=== PATIENT | female | born 1965 | race Caucasian/White ===

== ENCOUNTER → 2016-08-16 | Outpatient (CLI) | payer BC ==
[~2016-08-16] MED LIST: ALBU1AER9 INH; B-COTAB18 PO; BROM0.07 OPR; CALC-214 PO; CHOL100010 PO; GLUCTAB7 PO; METO25TA56 PO; OFLO0.3S4 OPL; PRED1SUS3 OPR
--- NOTE | 2016-08-19 14:31 | MAMMOGRAPHY REPORT ---
BILATERAL DIGITAL SCREENING MAMMOGRAM TOMOSYNTHESIS WITH CAD: 08/16/2016 CLINICAL HISTORY: Routine screening. Patient has no complaints. TECHNIQUE: Breast tomosynthesis in addition to standard 2D mammography was performed. Current study was also evaluated with a Computer Aided Detection (CAD) system. COMPARISON: Comparison is made to exams dated: 08/16/2015 mammogram, 08/12/2014 mammogram, 10/16/2012 mamm ogram - [facility], 09/22/2008, and 04/17/2007. BREAST COMPOSITION: There are scattered areas of fibroglandular density in both breasts. FINDINGS: There are newly visualized 2 adjacent circumscribed 8 and 6 mm masses seen within the righ t superior posterior breast overlying the pectoralis muscle, not evident on the cc view but is though t to project laterally based on the tomosynthesis localizer bar. These likely represent normal lymph nodes although were not seen on the prior exams. Recommend ultrasound and possible additional spot compression views for further evaluation. The remainder of both breasts are stable compared to prior exams, without suspicious masses, calcific ations, or areas of architectural distortion noted. IMPRESSION: ACR BI-RADS CATEGORY 0: INCOMPLETE EVALUATION: NEED ADDITIONAL IMAGING EVALUATION Two right breast masses, for which additional imaging evaluation is recommended. The patient will be called to schedule an appointment. Approximately 10% of breast cancers are not detected with mammography. A negative mammographic report should not delay biopsy if a clinically suggestive mass is present. Niurka Juan M.D. ah/:08/17/2016 11:29:08 Auto Phone Installer: Jazmyn GONZALES(Dorene)(Nba), [facility] letter sent: Addl Imaging 0 BI-RADS Code: ACR BI-RADS Category 0: Incomplete Evaluation: Need Additional Imaging Evaluation
== END | disposition home or self-care (01) ==
LOC: C.MAMM 11:38
PROVIDERS: ATTEND Family Medicine
DX: Z12.31 Encounter for screening mammogram for malignant neoplasm of breast (principal); N63 Unspecified lump in breast

== ENCOUNTER → 2016-08-29 | Outpatient (CLI) | payer BC ==
--- NOTE | 2016-08-30 09:02 | MAMMOGRAPHY REPORT ---
UNILATERAL RIGHT DIGITAL DIAGNOSTIC MAMMOGRAM TOMOSYNTHESIS AND TARGETED RIGHT ULTRASOUND: 08/29/2016 CLINICAL HISTORY: 51-year-old woman called back from screening mammography for 2 adjacent nodular asy mmetries in the superior posterior right breast, projecting over the pectoralis muscle on the MLO vie w. TECHNIQUE: Right exaggerated lateral CC and MLO 2-D and tomosynthesis images were obtained after plac ement of a skin BB marker overlying masses identified on ultrasound. COMPARISON: Comparison is made to exams dated: 08/29/2016 ultrasound, 08/16/2016 mammogram, 08/16/2015 ma mmogram, 08/12/2014 mammogram, 10/16/2012 mammogram - [facility], and 09/22/2008. BREAST COMPOSITION: There are scattered areas of fibroglandular density in the right breast. FINDINGS: First targeted ultrasound was performed in the upper outer quadrant of the right breast to evaluate for the 2 adjacent 5 x 6 mm partially circumscribed masses identified on recent screening m ammogram. 2 adjacent hypoechoic masses are identified in the 9:30 right breast, 10 cm from the nippl e. They have reniform shape and echogenic fatty bo. Blood flow is clearly documented to the sligh tly larger, lateral mass and these are compatible with benign lymph nodes. A skin BB was placed over lying these lymph nodes and repeat mammography was performed. On the right MLO view, the skin BB aligns with the mammographic nodular asymmetries in question. On this view, fatty bo are more evident. These masses are compatible with lymph nodes that appear mor phologically normal. However, given that they were not identified on any prior mammograms, a short i nterval follow-up diagnostic right mammogram MLO view, and repeat targeted ultrasound is read made to ensure stability in 6 months. IMPRESSION: ACR-BI-RADS CATEGORY 3: PROBABLY BENIGN, TARGETED ULTRASOUND ACR-BI-RADS CATEGORY 3: PRO BABLY BENIGN The 2 adjacent subcentimeter nodular asymmetries in the superior posterior right breast on the MLO vi ew most likely represent benign intramammary lymph nodes. However, given that they were not identifi ed on any available prior exams, a short interval follow-up diagnostic MLO view including tomosynthes is images and repeat targeted ultrasound is recommended in 6 months. Approximately 10% of breast cancers are not detected with mammography. A negative mammographic report should not delay biopsy if a clinically suggestive mass is present. Teri Mera M.D. ay/:08/29/2016 14:54:13 Licensed Psychiatric Technician: Marry Celestin, [facility] letter sent: Follow Up Recommended 3 BI-RADS Code: ACR-BI-RADS Category 3: Probably Benign Ultrasound BI-RADS: ACR-BI-RADS Category 3: Pr obably Benign
== END | disposition home or self-care (01) ==
LOC: C.MAMM 10:03
PROVIDERS: ATTEND Family Medicine
DX: N63 Unspecified lump in breast (principal); N64.89 Other specified disorders of breast

== ENCOUNTER → 2017-03-03 | Outpatient (CLI) | payer BC ==
--- NOTE | 2017-03-03 14:42 | MAMMOGRAPHY REPORT ---
UNILATERAL RIGHT DIGITAL DIAGNOSTIC MAMMOGRAM TOMOSYNTHESIS WITH CAD: 03/03/2017 CLINICAL HISTORY: 51-year-old woman presents for follow-up in the right breast of probable intramamma ry lymph nodes projecting over the inferior pectoralis muscle on the MLO view on the which were not v isualized on prior mammograms. TECHNIQUE: Right breast tomosynthesis in addition to standard 2D mammography was performed. Current s tudy was also evaluated with a Computer Aided Detection (CAD) system. COMPARISON: Comparison is made to exams dated: 08/29/2016 mammogram, 08/29/2016 ultrasound, 08/16/2016 m ammogram, 08/16/2015 mammogram, 08/12/2014 mammogram, and 10/16/2012 mammogram - [facility]. BREAST COMPOSITION: There are scattered areas of fibroglandular density in the right breast. FINDINGS: There are 2 circumscribed masses projecting over the inferior right pectoralis muscle on t he MLO view, in the superior posterior aspect of the breast. The inferior mass has a reniform shape and central lucent notch, suggesting an intramammary lymph node. Both of these masses were previousl y documented to represent lymph nodes on prior ultrasound. When comparing to the mammograms obtained 08/16/2016, they are unchanged in size and appearance. Currently wall measuring in the same plane, the superior circumscribed mass measures 6.4 mm, previously 6.6, and the inferior mass measures 7.1 m m, previously 7.3. These are considered stable given slight differences in positioning and measuring technique. No new suspicious mass, architectural distortion or cluster of microcalcifications is se en within the right breast. These lymph nodes visualized on the MLO view most likely represent benign lymph nodes and are newly v isualized given inclusion of more lateral and posterior tissue on the mammogram than on prior mammogr ams. However, given that long-term stability is not demonstrated, another six-month follow-up right diagnostic tomosynthesis mammogram including lateral and superior tissue is recommended, for accurate measurement and comparison purposes. Annual left mammography will also be due at that time. IMPRESSION: ACR-BI-RADS CATEGORY 3: PROBABLY BENIGN The lymph nodes in the superior posterior right breast, projecting over the inferior pectoralis muscl e on the MLO view have not changed in size or visual appearance comparing to the 08/16/2016 mammogram s, but were not identified on prior mammograms to ensure long-term stability. Another six-month foll ow-up right diagnostic tomosynthesis mammogram and possible ultrasound is recommended in 6 months to ensure longer stability. Annual left mammography will also be due at that time. These results and recommendations were discussed with the patient at the time of the exam. Approximately 10% of breast cancers are not detected with mammography. A negative mammographic report should not delay biopsy if a clinically suggestive mass is present. Teri Mera M.D. ay/:03/03/2017 12:15:35 Office Services Specialist: Guerline GONZALES(Dorene)(M), [facility] letter sent: Follow Up Recommended 3 BI-RADS Code: ACR-BI-RADS Category 3: Probably Benign
== END | disposition home or self-care (01) ==
LOC: C.MAMM 08:47
PROVIDERS: ATTEND Family Medicine
DX: R92.8 Other abnormal and inconclusive findings on diagnostic imaging of breast (principal)

== ENCOUNTER → 2017-09-02 | Outpatient (CLI) | payer OTHER ==
--- NOTE | 2017-09-02 16:20 | MAMMOGRAPHY REPORT ---
BILATERAL DIGITAL DIAGNOSTIC MAMMOGRAM TOMOSYNTHESIS WITH CAD: 09/02/2017 CLINICAL HISTORY: Patient presents for close follow-up in the right breast for 2 lymph nodes in the s uperior, far posterior breast projecting over the pectoralis muscle on the MLO view. Also time of theo ual bilateral mammograms. TECHNIQUE: Bilateral CC and MLO 2D and tomosynthesis images were obtained. Current study was also ev aluated with a Computer Aided Detection (CAD) system. COMPARISON: Comparison is made to exams dated: 03/03/2017 mammogram, 08/29/2016 mammogram, 08/16/2016 ma mmogram, 08/16/2015 mammogram, 08/12/2014 mammogram, and 10/16/2012 mammogram - [facility] BREAST COMPOSITION: There are scattered areas of fibroglandular density in both breasts. FINDINGS: The breast parenchymal pattern is similar to prior mammograms. 2 morphologically normal ly mph nodes project over the superior, posterior right breast and pectoralis muscle on the MLO view. T hese lymph nodes were previously documented to have normal morphology on ultrasound. They are stable in size and visual appearance mammographically dating back to at least 08/16/2016 and with one year of stability are considered benign. There are likely newly visualized given inclusion of more posterio r tissue on the mammogram images. Overall, there is no mammographic evidence of malignancy in the br easts. Recommend routine screening mammography in 1 year. IMPRESSION: ACR BI-RADS CATEGORY 2: BENIGN 1. The 2 morphologically normal lymph nodes projecting over the right pectoralis muscle on the MLO v iew are stable in size and visual appearance dating back to 08/16/2016 and more likely newly visualized given inclusion of more posterior tissue on the mammogram images. There is no mammographic evidence of malignancy in the breasts. Recommend routine screening mammography in 1 year. These results and recommendations were discussed with the patient at the time of the exam. Some breast cancers are not detected with mammography. A negative mammographic report should not jarod y biopsy if a clinically suggestive mass is present. Teri Mera M.D. ay/:09/02/2017 09:40:11 Interdisciplinary Professor: Marry Celestin, [facility] letter sent: Normal 1/2 BI-RADS Code: ACR BI-RADS Category 2: Benign
== END | disposition home or self-care (01) ==
LOC: C.MAMM 08:39
PROVIDERS: ATTEND Family Medicine
DX: R92.8 Other abnormal and inconclusive findings on diagnostic imaging of breast (principal)

== ENCOUNTER 2019-09-19 19:11 | Observation (INO) ==
[2019-09-19] MEDS ORDERED: SODIUM CHLORIDE 0.9% 1000ML 1,000 ML IV STA (19:47)
[2019-09-19] MEDS ORDERED: AMPICILLIN/SULBACTAM SOD 3,000 MG in 0.9 % SODIUM CHLORIDE 100 ML IV STA (19:47)
[2019-09-19] MEDS ORDERED: SODIUM CHLORIDE 0.9% 1000ML 1,000 ML IV ONE (19:49)
[2019-09-19 20:31] LABS: Partial Thromboplastin Ratio 0.9; Partial Thromboplastin Time 25.9 Seconds (21.0-31.0); Prothrombin Time 10.4 Seconds (9.0-12.0)
[2019-09-19 20:47] LABS: Basophils # (auto) 0.03 K/uL (0-0.2); Basophils % (auto) 0.5 %; Hematocrit (blood only) 40.2 % (37-47); Hemoglobin 13.2 g/dL (12.0-16.0); Immature Granulocytes # (auto) 0.01 K/uL (0.00-0.02); Immature Granulocytes % (auto) 0.2 %; Lymphocytes # (auto) 0.65 K/uL (1.2-3.4); Lymphocytes % (auto) 11.2 %; Mean Corpuscular Hemoglobin 30.8 pg (25-34); Mean Corpuscular Hgb Conc 32.8 g/dL (32-36); Mean Corpuscular Volume 93.7 fL (80-100); Mean Platelet Volume 9.5 fL (7.4-10.4); Monocytes # (auto) 0.44 K/uL (0.11-0.59); Monocytes % (auto) 7.6 %; Neutrophils # (auto) 4.65 K/uL (1.4-6.5); Neutrophils % (auto) 80.5 %; Platelet Count 258 K/uL (130-400); Platelet Estimate Normal (Normal); RDW Coefficient of Variation 13.4 % (11.5-14.5); RDW Standard Deviation 46.1 fL (36.4-46.3); Red Blood Count 4.29 M/uL (4.2-5.4); White Blood Count 5.78 K/uL (4.8-10.8)
[2019-09-19 21:07] LABS: Albumin Globulin Ratio 0.9 (0.9-2); Albumin Level 3.6 gm/dl (3.4-5.0); BUN Creatinine Ratio 9.2 (10-20); Calcium 9.2 mg/dl (8.5-10.1); Creatinine Clr Calc Pharmacy 76.3 ml/min; Est GFR (African American) 72.6; Est GFR (Non-African American) 62.6; Globulin 3.9 gm/dl (2.5-4.0); Potassium 3.4 mmol/L (3.5-5.1); Total Protein 7.5 gm/dl (6.4-8.2)
[2019-09-19] MEDS ORDERED: BACLOFEN 10 MG TAB PO PRN (22:55)
[2019-09-19] MEDS ORDERED: POLYETHYLENE (MIRALAX) 17 GM PACK PO PRN (22:55)
[2019-09-19] MEDS: SODIUM CHLORIDE 0.9% 1000ML 1,000 ML IV SCH (22:55)
[2019-09-19] MEDS ORDERED: ALPRAZolam 0.25 MG TABLET PO PRN (22:55)
[2019-09-19] MEDS ORDERED: OXYCODONE HCL IR 5 MG TAB (IMMEDIATE RELEASE) PO PRN (22:55)
--- NOTE | 2019-09-19 23:11 | History and Physical Report ---
DATE OF ADMISSION: 09/19/2019 CHIEF COMPLAINT: Cat bite. HISTORY OF PRESENT ILLNESS: This is a 54-year-old female with past medical history significant for history of pneumonia, history of influenza, pharyngitis, chronic sinusitis, history of PVCs, history of mitral valve disorder, hypertension, rosacea, cervicalgia, anxiety, depression, postnasal drip, posttraumatic stress disorder, who lives with her , comes with a cat bite. The patient says she has a pet cat which is there for many years and that she had a new stray cat living with them recently. Both the cats are good, but they do not like each other. She was petting her stray cat and when the stray cat went away her own cat was sitting beside her. When she tried to pet her, she got mad and she bit her on the left forearm. She came to the ER yesterday and she was given tetanus shot and Unasyn and discharged on Augmentin. She says her cat's rabies vaccine about 7 weeks ago, so as per the recommendations her cat is under quarantine now.But today evening the erythema was spreading and also she spiked a temperature and she came to the ER. In the ER, T-max was 37.8. No leukocytosis. Rest of the labs were unremarkable. She complains she has mild headache and she also has some mild right earache. She has allergies and has some runny nose, but denies any sore throat. Has cough from her allergies. Appetite is okay. No chest pain, no shortness of breath. Was nauseous earlier with antibiotics. No abdominal pain. No blood in the stools. Normal bowel and bladder movements. No rash anywhere else. Resting comfortably currently. ALLERGIES: KACEY INHIBITORS, CEPHALOSPORINS, HYDROCHLOROTHIAZIDE, EPINEPHRINE, ADHESIVES. PAST MEDICAL HISTORY: As mentioned above. PAST SURGICAL HISTORY: Colonoscopy, dilatation and curettage, ligation of oviducts, mole removed from the back, bilateral cataract surgery, repair of the nasal septum, shoulder arthroscopy. MEDICATIONS: The patient is on alprazolam 0.5 mg p.o. daily p.r.n., Augmentin 1 tablet p.o. b.i.d., baclofen 10 mg p.o. daily p.r.n., metoprolol 25 mg p.o. b.i.d. FAMILY HISTORY: Significant for father had prostate cancer, [place], hypertension; mother had skin cancer; sister has probable meningioma; another sister of PE. SOCIAL HISTORY: , lives with her . No smoking. Drinks 1 drink daily on average. No drug use. REVIEW OF SYSTEMS: As per HPI. Rest of the review of systems negative. PHYSICAL EXAMINATION: GENERAL: The patient is of moderate build, not in acute distress. VITAL SIGNS: Temperature 37.8, pulse 110, respiratory rate 18, blood pressure 136/107, oxygen 96% on room air. HEENT: No pallor. Pupils equal, round, reactive to light. Oral mucosa moist. NECK: No JVD, no neck masses. CARDIOVASCULAR: S1, S2 heard, regular rate and rhythm, no murmur, no gallop. RESPIRATORY SYSTEM: Normal AP diameter. No accessory muscle use. No wheezing, no crackles. ABDOMEN: Soft, bowel sounds present, nontender. No distention. CENTRAL NERVOUS SYSTEM: Cranial nerves II-XII grossly intact. Nonfocal. EXTREMITIES: Left upper extremity erythema and slight swelling seen in the forearm about the wrist region spreading posteriorly. LABORATORY DATA: WBC 5.7, hemoglobin 13.2, hematocrit 40.2, platelets 258. PT 10.4, INR 1, APTT 25.9. Sodium 139, potassium 3.4, chloride 106, bicarbonate 27, BUN 9, creatinine 1.01. Serum glucose 100, lactate 1.4, calcium 9.2, total bilirubin 1, AST 29, ALT 32, alkaline phosphatase is 101. ASSESSMENT AND PLAN: This is a 54-year-old female who presents with a biting from a cat, not responding to oral antibiotics. 1. Cat bite wound, spreading cellulitis. Received Unasyn yesterday and discharged on Augmentin, but again has temperature spike and erythema seemed to be spreading, so she came back. Will continue with IV Unasyn, IV fluids, follow the cultures and if not responding, may change the antibiotics to clindamycin and doxycycline. Monitor in the medical floor. 2. History of hypertension, PVCs. Continue her home metoprolol. 3. History of anxiety. Continue her Ativan p.r.n. 4. Deep venous thrombosis prophylaxis, sequential compression devices. DISPOSITION: Admit to medical floor. Expect to discharge home and follow with the family doctor. [facility]
[2019-09-19] MEDS ORDERED: AMPICILLIN/SULBACTAM CONSULT ACTIVE PRN (23:13)
--- NOTE | 2019-09-19 23:35 | Emergency Department Note ---
History of Present Illness General Chief complaint: Animal Bite Stated complaint: CAT BITE, FEVER Time Seen by Provider: 09/19/19 19:14 History of Present Illness Maximum Pain Intensity: 5 54-year-old female who presents to the emergency department for evaluation of a worsening cat bite infection to the left forearm. The patient reports that she was bitten Friday evening. She was seen here yesterday and administered IV Unasyn with a prescription for Augmentin antibiotics. The patient reports that she has had worsening swelling of the forearm, and mildly worsening pain and redness over the ulnar aspect of the forearm. She denies any significant pain with movement of the elbow or wrist. The patient has had a fever of 101.8 F at home. She is also felt chilled and rundown. The patient rates her discomfort a 5 out of 10. Home Medications Home Medications Medication Instructions Recorded Confirmed Type alprazolam 0.25 mg PO DAILY PRN 09/18/19 09/19/19 History amoxicillin-pot clavulanate 1 tab PO BID 10 Days #20 tab 09/18/19 09/19/19 Rx [Augmentin] baclofen 10 mg PO DAILY PRN 09/18/19 09/19/19 History metoprolol tartrate 25 mg PO BID 09/18/19 09/19/19 History Allergies Allergy/AdvReac Type Severity Reaction Status Date / Time KACEY Inhibitors Allergy Severe "THROAT Verified 09/19/19 19:57 CLOSES" Cephalosporins Allergy Intermediate FACIAL/MOUTH Verified 09/19/19 19:57 EDEMA,FLUSHING hydrochlorothiazide Allergy Intermediate "MADE FACE Verified 09/19/19 19:57 GO NUMB" epinephrine AdvReac Intermediate LOW BP DID Verified 09/19/19 19:57 NOT RESPOND TO EPI adhesive AdvReac Mild UNKNOWN Verified 09/19/19 19:57 Past Med/Surg History Medical History [facility]'s disease (Chronic 10/06/12) H1N1 influenza developed ARDS and was placed in coma for 1 month Hypertensive urgency Surgical History No significant past surgical history Social History Smoking Status: Never smoker Do You Dip or Chew Tobacco: No; Hx Alcohol Use: No Hx Substance Use: No Preferred Language: Lithuanian Communication Ability: Effective Hide Inspector Required: No Beliefs That Will Affect Care: None marital status: Current Living Situation: Family current occupational status: employed Other Information That Helps Us Care for You: No Feels Safe at Home: Yes Safety Concerns: Feels Safe At This Time Review of Systems 10 system review was performed and was negative except for pertinent positives and negatives as indicated in history of present illness Physical Exam Vital Signs Vital Signs - 24 hr 09/19/19 19:13 Temperature 37.8 C H Temperature Source Oral Pulse Rate 110 H Respiratory Rate 18 Respiratory Effort / Characteristics Non-Labored Spontaneous Respiratory Depth Normal Blood Pressure 186/107 H Blood Pressure Mean 133 Pulse Oximetry 96 Oxygen Delivery Method Room Air Sepsis Recent Fever Within 48 Hours Yes Sepsis New/Unexplained Change in Mental Status No Sepsis Action Taken by Nursing No Action Required CONSTITUTIONAL: Healthy and well nourished. Patient does not appear in any acute distress. HEENT: Normocephalic, atraumatic. No scleral icterus or conjunctival injection. RESPIRATORY: Clear to auscultation bilaterally with no wheezing, crackles, rhonchi or stridor. CARDIOVASCULAR: Regular rate and rhythm with no murmurs, rubs or gallops. GASTROINTESTINAL: Bowel sounds present in all quadrants. Soft and nontender to palpation. MUSCULOSKELETAL: Examination of left upper extremity shows multiple bites and scratches on the left hand and forearm. She does have notable erythema along the entire dorsal forearm region that is tender to palpation and mildly indurated. No fluctuance or drainage appreciated. Patient has mild but no significant discomfort with passive flexion and extension of the fingers and wrist. Capillary refill of the fingers is less than 2 seconds. INTEGUMENTARY: No rash or other significant dermatologic conditions noted. HEMATOLOGIC: No ecchymosis or petechiae. PSYCHIATRIC: Positive affect. NEUROLOGIC: Left hand and fingers are sensory intact. Course Course Patient history and physical exam were performed. Nurse's notes were reviewed. Vital signs were reviewed, showing an oral temperature of 37.8 C. She is also mildly tachycardic at 110 bpm. She is also hypertensive at 186/107. The patient reports that she did not feel well enough to take her blood pressure medicine this morning, and actually took the medicine just prior to my examination. Because of worsening infection and fever, I recommended hospitalist evaluation for IV antibiotics. The patient was in agreement. IV access was established, and labs were drawn, including blood cultures x2. The patient was hydrated with 2 L of normal saline. Review of labs shows no leukocytosis. Potassium is 3.4. Renal function is normal. Lactate is also normal. The patient was administered Unasyn 3 g IV infusion. The case was further discussed with Dr. Crawford, ED attending physician, who agrees with hospitalist evaluation. The case was then discussed with the [facility] hospitalist group. Please see their dictation for further treatment and final disposition. Administered Medications Acetaminophen (Tylenol) 650 mg PO Q4H PRN PRN Reason: pain/fever Stop: 10/19/19 22:54 Last Admin: 09/20/19 00:08 Dose: 650 mg Documented by: [id number] Sodium Chloride (Nss 1000ml) 1,000 mls @ 100 mls/hr IV .Q10H KIM Stop: 10/19/19 22:54 Last Admin: 09/19/19 22:55 Dose: 100 mls/hr Documented by: [id number] Discontinued Medications Sodium Chloride (Nss 1000ml) 1,000 mls @ 999 mls/hr IV .Q1H1M ONE Stop: 09/19/19 20:49 Last Infusion: 09/19/19 21:57 Dose: 0 mls/hr Documented by: [id number] Admin: 09/19/19 20:42 Dose: 999 mls/hr Documented by: [id number] Sodium Chloride (Nss 1000ml) 1,000 mls @ 999 mls/hr IV .Q1H1M STA Stop: 09/19/19 20:47 Last Infusion: 09/20/19 00:01 Dose: 0 mls/hr Documented by: [id number] Admin: 09/19/19 22:13 Dose: 999 mls/hr Documented by: [id number] Ampicillin Sodium/Sulbactam Sodium 3,000 mg/ Sodium Chloride 108 mls @ 200 mls/hr IV NOW STA; Protocol Stop: 09/19/19 20:19 Last Infusion: 09/19/19 21:15 Dose: 0 mls/hr Documented by: [id number] Admin: 09/19/19 20:42 Dose: 200 mls/hr Documented by: [id number] Medical Decision Making Medical Records Attestation: I reviewed the patient's medical records. Home Medications Current Medication List: was personally reviewed by me Laboratory Data Attestation: I reviewed the patient's lab results. Result diagrams: 09/19/19 20:05 09/19/19 20:05 Lab Results 09/19/19 09/19/19 09/19/19 Range/Units 20:05 20:05 20:05 WBC 5.78 (4.8-10.8) K/uL RBC 4.29 (4.2-5.4) M/uL Hgb 13.2 (12.0-16.0) g/dL Hct 40.2 (37-47) % MCV 93.7 (80-100) fL MCH 30.8 (25-34) pg MCHC 32.8 (32-36) g/dL RDW Std Deviation 46.1 (36.4-46.3) fL RDW Coeff of Jose 13.4 (11.5-14.5) % Plt Count 258 (130-400) K/uL MPV 9.5 (7.4-10.4) fL Immature Gran % (Auto) 0.2 % Neut % (Auto) 80.5 % Lymph % (Auto) 11.2 % [place] % (Auto) 7.6 % Eos % (Auto) 0.0 % Baso % (Auto) 0.5 % Neut # (Auto) 4.65 (1.4-6.5) K/uL Lymph # (Auto) 0.65 L (1.2-3.4) K/uL [place] # (Auto) 0.44 (0.11-0.59) K/uL Eos # (Auto) 0.00 (0-0.5) K/uL Baso # (Auto) 0.03 (0-0.2) K/uL Immature Gran # (Auto) 0.01 (0.00-0.02) K/uL Platelet Estimate Normal (Normal) PT 10.4 (9.0-12.0) Seconds INR 1.0 (0.9-1.1) APTT 25.9 (21.0-31.0) Seconds PTT Ratio 0.9 Sodium 139 (136-145) mmol/L Potassium 3.4 L D (3.5-5.1) mmol/L Chloride 106 (98-107) mmol/L Carbon Dioxide 27 (21-32) mmol/L Anion Gap 6.0 (3-11) BUN 9 (7-18) mg/dl Creatinine 1.01 (0.6-1.2) mg/dl Est Cr Clr Drug Dosing 76.3 ml/min Est GFR ( Amer) 72.6 Est GFR (Non-Af Amer) 62.6 BUN/Creatinine Ratio 9.2 L (10-20) Glucose 100 H (70-99) mg/dl Lactate (0.4-2.0) mmol/L Calcium 9.2 (8.5-10.1) mg/dl Total Bilirubin 1.0 (0.2-1) mg/dl AST 29 (15-37) U/L ALT 32 (12-78) U/L Alkaline Phosphatase 101 (45-117) U/L Total Protein 7.5 (6.4-8.2) gm/dl Albumin 3.6 (3.4-5.0) gm/dl Globulin 3.9 (2.5-4.0) gm/dl Albumin/Globulin Ratio 0.9 (0.9-2) 09/19/19 Range/Units 20:25 WBC (4.8-10.8) K/uL RBC (4.2-5.4) M/uL Hgb (12.0-16.0) g/dL Hct (37-47) % MCV (80-100) fL MCH (25-34) pg MCHC (32-36) g/dL RDW Std Deviation (36.4-46.3) fL RDW Coeff of Jose (11.5-14.5) % Plt Count (130-400) K/uL MPV (7.4-10.4) fL Immature Gran % (Auto) % Neut % (Auto) % Lymph % (Auto) % [place] % (Auto) % Eos % (Auto) % Baso % (Auto) % Neut # (Auto) (1.4-6.5) K/uL Lymph # (Auto) (1.2-3.4) K/uL [place] # (Auto) (0.11-0.59) K/uL Eos # (Auto) (0-0.5) K/uL Baso # (Auto) (0-0.2) K/uL Immature Gran # (Auto) (0.00-0.02) K/uL Platelet Estimate (Normal) PT (9.0-12.0) Seconds INR (0.9-1.1) APTT (21.0-31.0) Seconds PTT Ratio Sodium (136-145) mmol/L Potassium (3.5-5.1) mmol/L Chloride (98-107) mmol/L Carbon Dioxide (21-32) mmol/L Anion Gap (3-11) BUN (7-18) mg/dl Creatinine (0.6-1.2) mg/dl Est Cr Clr Drug Dosing ml/min Est GFR ( Amer) Est GFR (Non-Af Amer) BUN/Creatinine Ratio (10-20) Glucose (70-99) mg/dl Lactate 1.4 (0.4-2.0) mmol/L Calcium (8.5-10.1) mg/dl Total Bilirubin (0.2-1) mg/dl AST (15-37) U/L ALT (12-78) U/L Alkaline Phosphatase (45-117) U/L Total Protein (6.4-8.2) gm/dl Albumin (3.4-5.0) gm/dl Globulin (2.5-4.0) gm/dl Albumin/Globulin Ratio (0.9-2) Blood Pressure Blood Pressure Findings: Elevated blood pressure Blood Pressure Disposition: further management by hospitalist MDM Narrative Patient presents to the emergency department after failing outpatient management of a left forearm cellulitis incurred by a cat bite. I do not feel that the patient is septic after review of labs, as she has no leukocytosis or elevated lactate level. Blood cultures were nonetheless ordered given her fever. At this point, I do not suspect that the patient has an infected tenosynovitis, therefore emergent orthopedic surgical consult was not felt to be warranted. T he case was further discussed with the hospitalist who agrees with an observation status with IV antibiotics. Impression & Plan Infected cat bite of forearm Discharge Plan Visit Data *Final* Discharge Date/Time: 09/19/19 22:27 Chief Complaint: Animal Bite Stated Complaint: CAT BITE, FEVER ED Provider: Suhail Crawford ED Midlevel Provider: Devonte Ching Discharge Problem: Infected cat bite of forearm Patient Disposition: Admitted As Inpatient Discharge Instructions Interventions: ED Discharge Assessment Last Done: 09/19/19 22:27 Discharge Problem: Infected cat bite of forearm Qualifiers: Encounter type: initial encounter Laterality: left Qualified Code(s): S51.852A - Open bite of left forearm, initial encounter
[2019-09-20] MEDS: ACETAMINOPHEN 325 MG TAB PO PRN ×2 (00:08→20:18)
[2019-09-20] MEDS: AMPICILLIN/SULBACTAM SOD 3,000 MG in 0.9 % SODIUM CHLORIDE 100 ML IV SCH ×4 (01:47→20:18)
[2019-09-20 05:30] LABS: Basophils # (auto) 0.03 K/uL (0-0.2); Basophils % (auto) 0.7 %; Eosinophils # (auto) 0.01 K/uL (0-0.5); Eosinophils % (auto) 0.2 %; Hematocrit (blood only) 38.8 % (37-47); Hemoglobin 12.5 g/dL (12.0-16.0); Immature Granulocytes # (auto) 0.01 K/uL (0.00-0.02); Immature Granulocytes % (auto) 0.2 %; Lymphocytes # (auto) 1.21 K/uL (1.2-3.4); Lymphocytes % (auto) 27.1 %; Mean Corpuscular Hemoglobin 30.5 pg (25-34); Mean Corpuscular Hgb Conc 32.2 g/dL (32-36); Mean Corpuscular Volume 94.6 fL (80-100); Mean Platelet Volume 8.6 fL (7.4-10.4); Monocytes # (auto) 0.37 K/uL (0.11-0.59); Monocytes % (auto) 8.3 %; Neutrophils # (auto) 2.83 K/uL (1.4-6.5); Neutrophils % (auto) 63.5 %; Platelet Count 203 K/uL (130-400); RDW Coefficient of Variation 13.5 % (11.5-14.5); RDW Standard Deviation 46.7 fL (36.4-46.3); White Blood Count 4.46 K/uL (4.8-10.8)
[2019-09-20] MEDS ORDERED: HydrALAZINE HCL 20 MG/ML VIAL IV PRN (05:38)
[2019-09-20 05:53] LABS: BUN Creatinine Ratio 8.7 (10-20); Calcium 8.5 mg/dl (8.5-10.1); Creatinine Clr Calc Pharmacy 96.8 ml/min; Est GFR (African American) 97.7; Est GFR (Non-African American) 84.3; Magnesium 2.2 mg/dl (1.8-2.4); Potassium 3.2 mmol/L (3.5-5.1)
[2019-09-20] MEDS ORDERED: POTASSIUM CHLORIDE 20 MEQ/15 ML UDC PO STA (06:57)
[2019-09-20] MEDS: METOPROLOL TARTRATE 25 MG TAB PO SCH ×2 (08:21→21:58)
[2019-09-20] MEDS: SODIUM CHLORIDE 0.9% 1000ML 1,000 ML IV SCH ×2 (11:07→20:19)
--- NOTE | 2019-09-20 11:17 | Hospitalist Progress Note ---
Date of Service September 20, 2019 Assessment & Plan (1) Infected cat bite of forearm: (2) Cellulitis of forearm, left: Patient reports improvement No leukocytosis Will continue iv zosyn for now and monitor Doxycycline added Continue to monitor If worsens, will change to clinda + doxy and consult surgery (3) Hypertension: BP is 150/64 this AM Continue home metoprolol If poorly controlled, will add CCB DVT prophylaxis - SCD Admission and Anticipated Discharge Date Admission Date: September 19, 2019 Subjective Patient seen and examined Reports generalized body aches Reports pain and swelling at bite site is improved Tmax since admission is 37.8 Reported earlier headache is resolved. No chills, nausea, vomiting No paresthesiae in left hand Physical Exam Constitutional: + well hydrated; no acute distress Eyes: PERRL, conjunctivae normal, anicteric sclerae ENMT: external ear and nose normal, oropharynx normal No tragal tenerness Respiratory: normal respiratory effort, lungs clear to auscultation Cardiovascular: RRR, no murmur, no edema Gastrointestinal (Abdomen): normal bowel sounds, soft, nontender, no hepatosplenomegaly Musculoskeletal: Swelling, erythema and tenderness around cat bite pola on dorsum of left forearm No discharge. Radial pulse is normal, no sensory deficits Neurologic: PERRL, EOMI, accommodation nl, no face palsy, no dysarthria Psychiatric: A+Ox3, euthymic affect Results & Data Results & Data ([facility]) Vital Signs (Past 12 Hours) Vital Signs Temp Pulse Resp BP Pulse Ox 09/20/19 07:20 37.6 C H 86 18 150/64 H 95 09/20/19 04:43 37.2 C Laboratory Results Laboratory Results - last 24 hr 09/19/19 09/19/19 09/19/19 20:05 20:05 20:05 WBC 5.78 RBC 4.29 Hgb 13.2 Hct 40.2 MCV 93.7 MCH 30.8 MCHC 32.8 RDW Std Deviation 46.1 RDW Coeff of Jose 13.4 Plt Count 258 MPV 9.5 Immature Gran % (Auto) 0.2 Neut % (Auto) 80.5 Lymph % (Auto) 11.2 [place] % (Auto) 7.6 Eos % (Auto) 0.0 Baso % (Auto) 0.5 Neut # (Auto) 4.65 Lymph # (Auto) 0.65 L [place] # (Auto) 0.44 Eos # (Auto) 0.00 Baso # (Auto) 0.03 Immature Gran # (Auto) 0.01 Platelet Estimate Normal PT 10.4 INR 1.0 APTT 25.9 PTT Ratio 0.9 Sodium 139 Potassium 3.4 L D Chloride 106 Carbon Dioxide 27 Anion Gap 6.0 BUN 9 Creatinine 1.01 Est Cr Clr Drug Dosing 76.3 Est GFR ( Amer) 72.6 Est GFR (Non-Af Amer) 62.6 BUN/Creatinine Ratio 9.2 L Glucose 100 H Lactate Calcium 9.2 Magnesium Total Bilirubin 1.0 AST 29 ALT 32 Alkaline Phosphatase 101 Total Protein 7.5 Albumin 3.6 Globulin 3.9 Albumin/Globulin Ratio 0.9 09/19/19 09/20/19 09/20/19 20:25 05:08 05:08 WBC 4.46 L RBC 4.10 L Hgb 12.5 Hct 38.8 MCV 94.6 MCH 30.5 MCHC 32.2 RDW Std Deviation 46.7 H RDW Coeff of Jose 13.5 Plt Count 203 MPV 8.6 Immature Gran % (Auto) 0.2 Neut % (Auto) 63.5 Lymph % (Auto) 27.1 [place] % (Auto) 8.3 Eos % (Auto) 0.2 Baso % (Auto) 0.7 Neut # (Auto) 2.83 Lymph # (Auto) 1.21 [place] # (Auto) 0.37 Eos # (Auto) 0.01 Baso # (Auto) 0.03 Immature Gran # (Auto) 0.01 Platelet Estimate PT INR APTT PTT Ratio Sodium 142 Potassium 3.2 L Chloride 110 H Carbon Dioxide 26 Anion Gap 6.0 BUN 7 Creatinine 0.79 Est Cr Clr Drug Dosing 96.8 Est GFR ( Amer) 97.7 Est GFR (Non-Af Amer) 84.3 BUN/Creatinine Ratio 8.7 L Glucose 98 Lactate 1.4 Calcium 8.5 Magnesium 2.2 Total Bilirubin AST ALT Alkaline Phosphatase Total Protein Albumin Globulin Albumin/Globulin Ratio (1) Infected cat bite of forearm Encounter type: initial encounter Laterality: left Qualified Code(s): S51.852A - Open bite of left forearm, initial encounter; L08.9 - Local infection of the skin and subcutaneous tissue, unspecified; W55.01XA - Bitten by cat, initial encounter
[2019-09-20] MEDS: DOXYCYCLINE HYCLATE 100 MG CAP PO SCH ×2 (12:48→22:26)
[2019-09-20] MEDS ORDERED: AMLODIPINE BESYLATE 5 MG TAB PO ONE (18:26)
[2019-09-20] MEDS: ONDANSETRON INJ 2 MG/ML 2 ML VIAL IV PRN (22:03)
[2019-09-21] MEDS: AMPICILLIN/SULBACTAM SOD 3,000 MG in 0.9 % SODIUM CHLORIDE 100 ML IV SCH ×2 (02:29→07:44)
[2019-09-21 05:59] LABS: Hematocrit (blood only) 39.1 % (37-47); Hemoglobin 12.8 g/dL (12.0-16.0); Mean Corpuscular Hemoglobin 30.9 pg (25-34); Mean Corpuscular Hgb Conc 32.7 g/dL (32-36); Mean Corpuscular Volume 94.4 fL (80-100); Mean Platelet Volume 8.9 fL (7.4-10.4); Platelet Count 201 K/uL (130-400); RDW Coefficient of Variation 13.6 % (11.5-14.5); RDW Standard Deviation 47.1 fL (36.4-46.3); Red Blood Count 4.14 M/uL (4.2-5.4); White Blood Count 4.54 K/uL (4.8-10.8)
[2019-09-21] MEDS: ACETAMINOPHEN 325 MG TAB PO PRN (05:59)
[2019-09-21] MEDS: SODIUM CHLORIDE 0.9% 1000ML 1,000 ML IV SCH (06:00)
[2019-09-21 06:29] LABS: BUN Creatinine Ratio 8.3 (10-20); Calcium 8.5 mg/dl (8.5-10.1); Creatinine Clr Calc Pharmacy 104.7 ml/min; Est GFR (African American) 107.5; Est GFR (Non-African American) 92.7; Potassium 3.6 mmol/L (3.5-5.1)
[2019-09-21 07:37] VITALS: BP 137/84; PULSE 62; TEMP 98.2; O2SAT 98
[2019-09-21] MEDS: ONDANSETRON INJ 2 MG/ML 2 ML VIAL IV PRN (07:44)
[2019-09-21] MEDS: DOXYCYCLINE HYCLATE 100 MG CAP PO SCH (08:58)
[2019-09-21] MEDS: METOPROLOL TARTRATE 25 MG TAB PO SCH (08:58)
--- NOTE | 2019-09-21 12:51 | Discharge Summary ---
Date of Service September 21, 2019 Admission HPI Per Admitting Provider 54-year-old female with past medical history significant for history of pneumonia, history of influenza, pharyngitis, chronic sinusitis, history of PVCs, history of mitral valve disorder, hypertension, rosacea, cervicalgia, anxiety, depression, postnasal drip, posttraumatic stress disorder, who lives with her , comes with a cat bite. The patient says she has a pet cat which is there for many years and that she had a new stray cat living with them recently. Both the cats are good, but they do not like each other. She was petting her stray cat and when the stray cat went away her own cat was sitting beside her. When she tried to pet her, she got mad and she bit her on the left forearm. She came to the ER yesterday and she was given tetanus shot and Unasyn and discharged on Augmentin. She says her cat's rabies vaccine about 7 weeks ago, so as per the recommendations her cat is under quarantine now.But today evening the erythema was spreading and also she spiked a temperature and she came to the ER. In the ER, T-max was 37.8. No leukocytosis. Rest of the labs were unremarkable. She complains she has mild headache and she also has some mild right earache. She has allergies and has some runny nose, but denies any sore throat. Has cough from her allergies. Appetite is okay. No chest pain, no shortness of breath. Was nauseous earlier with antibiotics. No abdominal pain. No blood in the stools. Normal bowel and bladder movements. No rash anywhere else. Resting comfortably currently. Admission Exam Per Admitting Provider GENERAL: The patient is of moderate build, not in acute distress. VITAL SIGNS: Temperature 37.8, pulse 110, respiratory rate 18, blood pressure 136/107, oxygen 96% on room air. HEENT: No pallor. Pupils equal, round, reactive to light. Oral mucosa moist. NECK: No JVD, no neck masses. CARDIOVASCULAR: S1, S2 heard, regular rate and rhythm, no murmur, no gallop. RESPIRATORY SYSTEM: Normal AP diameter. No accessory muscle use. No wheezing, no crackles. ABDOMEN: Soft, bowel sounds present, nontender. No distention. CENTRAL NERVOUS SYSTEM: Cranial nerves II-XII grossly intact. Nonfocal. EXTREMITIES: Left upper extremity erythema and slight swelling seen in the forearm about the wrist region spreading posteriorly. Principal Diagnosis Infected cat bite Left forearm cellulitis Discharge Exam Constitutional + well hydrated; no acute distress Eyes PERRL, conjunctivae normal, anicteric sclerae ENMT external ear and nose normal, oropharynx normal Respiratory normal respiratory effort, lungs clear to auscultation Cardiovascular RRR, no murmur, no edema Gastrointestinal (Abdomen) normal bowel sounds, soft, nontender, no hepatosplenomegaly Musculoskeletal Swelling on left forearm remarkably improved Erythema also improved, less than previous marking. No discharge Neurologic PERRL, EOMI, accommodation nl, no face palsy, no dysarthria Psychiatric A+Ox3, euthymic affect Discharge Data Allergies Allergy/AdvReac Type Severity Reaction Status Date / Time KACEY Inhibitors Allergy Severe "THROAT Verified 09/19/19 19:57 CLOSES" Cephalosporins Allergy Intermediate FACIAL/MOUTH Verified 09/19/19 19:57 EDEMA,FLUSHING hydrochlorothiazide Allergy Intermediate "MADE FACE Verified 09/19/19 19:57 GO NUMB" epinephrine AdvReac Intermediate LOW BP DID Verified 09/19/19 19:57 NOT RESPOND TO EPI adhesive AdvReac Mild UNKNOWN Verified 09/19/19 19:57 Consultations 09/19/19 19:47 ED Decision to Admit Stat Hospital Course (1) Infected cat bite of forearm: (2) Cellulitis of forearm, left: Significant improvement No leukocytosis Was initially started on zosyn iv Doxycycline was added. Patient provided education on red flag signs of worsening cellulitis and to return to PCP or ER if worsens. Patient also reports feeling better. Myalgia has resolved. Discharge on po doxycycline + flagyl to complete therapy (3) Hypertension: Hypertensive urgency BP was 196/75 on admission BP remained elevated even after pain control Was started on amlodipine yesterday. BP is better controlled today at 130s/80s Patient discharged on amlodipine 5mg daily in addition to home metoprolol To follow up with PCP for continued evaluation and management Total Time Total Time Spent Total Time Spent (In Minutes): 35 Total Time Includes: Examination of the Patient, Discharge Planning and Medication Reconciliation Discharge Plan Discharge Items Patient Disposition: Home - Self-Care Reason For Visit: CAT BITE Discharge Diagnosis: Infected cat bite Left forearm cellulitis Hypertension Activity: Resume your previous activity Non-emergency contact: Primary Care Provider Call non-emergency contact if: you have any medication questions and your symptoms worsen Follow-up/Referrals: Christian Wallace MD [Primary Care Provider] - 09/27/19 11:00 am (09/27/2019 11:00 AM Provider Christian Wallace MD [facility] ) Diet: Heart Healthy Addtl Attending Provider Instructions: Ms Mar. You came to the hospital for worsening left hand pain and swelling at site of cat bite. You were evaluated and started on iv antibiotics. Your left hand pain and swelling has improved significantly. Please continue to take oral antibiotics at home to complete treatment. Your blood pressure was also very high during hospital stay. A blood pressure m edication, amlodipine was added to your medications. Please follow up with your Primary Doctor for continued management. It was a pleasure taking care of you. Pending Studies at Discharge: No Stand-Alone Forms: My [employer], Smoking Cessation Medications and DC Order Prescriptions: New acetaminophen 325 mg Tablet 650 mg PO Q4H PRN (Reason: pain) Qty: 30 RF: 0 doxycycline hyclate 100 mg Capsule 100 mg PO BID 5 Days Qty: 10 RF: 0 metronidazole [Flagyl] 500 mg tablet 500 mg PO TID 5 Days Qty: 15 RF: 0 amlodipine 5 mg tablet 5 mg PO DAILY Qty: 30 RF: 0 Continued alprazolam 0.25 mg tablet 0.25 mg PO DAILY PRN (Reason: Anxiety) RF: 0 baclofen 10 mg tablet 10 mg PO DAILY PRN (Reason: Muscle Spasticity) RF: 0 metoprolol tartrate 25 mg tablet 25 mg PO BID RF: 0 Discontinued amoxicillin-pot clavulanate [Augmentin] 875-125 mg tablet 1 tab PO BID 10 Days Qty: 20 RF: 0 Discharge Orders: Discharge Order (Routine); Ordered 09/21/19 Ordered By: Holly Rodriguez Admission Data Admit Date/Time: 09/19/19 21:36 Attending Provider: Holly Rodriguez I. Admit Provider: Bayron Fishman Primary Care Provider: Christian Wallace Other Providers: Bayron Fishman Other Interventions: Discharge Summary Assessment (RN) Last Done: 09/21/19 13:52 DC Date/Time DO NOT enter until pt leaves facility: 09/21/19 15:04
--- NOTE | 2019-09-23 05:58 | Electrocardiogram Report ---
Test Reason : Blood Pressure : / mmHG Vent. Rate : 057 BPM Atrial Rate : 057 BPM P-R Int : 136 ms QRS Dur : 080 ms QT Int : 482 ms P-R-T Axes : 048 054 158 degrees QTc Int : 469 ms Sinus bradycardia Possible Left atrial enlargement Nonspecific ST and T wave abnormality Prolonged QT Abnormal ECG When compared with ECG of 25-NOV-2013 07:00, Premature ventricular complexes are no longer Present Confirmed by Kvng Matos ([id number]) on 09/23/2019 5:57:55 AM Referred By: REFERRED SELF Confirmed By:Kvng Matos
== END 2019-09-21 15:04 | disposition home or self-care (01) ==
LOC: ED 19:11 → 3N 21:36 → INTOOBSV 21:36 → 3N 22:27

== ENCOUNTER 2019-10-26 12:44 | Inpatient (IN) ==
[2019-10-26] MEDS ORDERED: SODIUM CHLORIDE 0.9% 1000ML 1,000 ML IV SCH (13:00)
[2019-10-26] MEDS ORDERED: OPTIRAY 320 125ml IV ONE (13:09)
[2019-10-26 13:26] LABS: Basophils # (auto) 0.03 K/uL (0-0.2); Basophils % (auto) 0.4 %; Eosinophils # (auto) 0.16 K/uL (0-0.5); Eosinophils % (auto) 2.4 %; Hematocrit (blood only) 42.1 % (37-47); Hemoglobin 14.3 g/dL (12.0-16.0); Immature Granulocytes # (auto) 0.01 K/uL (0.00-0.02); Immature Granulocytes % (auto) 0.1 %; Lymphocytes # (auto) 1.84 K/uL (1.2-3.4); Lymphocytes % (auto) 27.5 %; Mean Corpuscular Hemoglobin 30.8 pg (25-34); Mean Corpuscular Volume 90.5 fL (80-100); Mean Platelet Volume 8.9 fL (7.4-10.4); Neutrophils # (auto) 4.25 K/uL (1.4-6.5); Neutrophils % (auto) 63.6 %; Platelet Count 324 K/uL (130-400); RDW Coefficient of Variation 13.3 % (11.5-14.5); RDW Standard Deviation 43.4 fL (36.4-46.3); Red Blood Count 4.65 M/uL (4.2-5.4); White Blood Count 6.69 K/uL (4.8-10.8)
--- NOTE | 2019-10-26 13:28 | CT Scan Report ---
UNENHANCED CT OF THE BRAIN; CT ANGIOGRAM OF THE BRAIN; CT ANGIOGRAM OF THE NECK CLINICAL HISTORY: Strokelike symptoms. COMPARISON STUDY: CT of the brain dated 11/24/2013. CT angiogram of the brain dated 04/21/2013. TECHNIQUE: Unenhanced axial CT scan of the brain is performed. Subsequently, following the IV adminis tration of 120 of Optiray 320, CT angiogram of the head and neck was performed from the aortic arch t o the vertex. Images are reviewed in the axial, sagittal, and coronal planes. 3-D MIPS images are cre ated and assessed. IV contrast was administered without complication. All measurements were calculate d based on NASCET criteria. A dose lowering technique was utilized adhering to the principles of ALA RA. CT DOSE: 1123.05 mGy.cm FINDINGS: Brain parenchyma: The brain parenchyma is normal in appearance. There is no hemorrhage, mass effect, or evidence of acute territorial ischemia by CT criteria. There is no evidence of enhancing mass lesi on on the angiogram phase images. The ventricles, sulci, and cisterns are normal in configuration. Gr ay-white matter differentiation is preserved. No extra-axial fluid collection is seen. Thoracic aorta: Visualized portions of the thoracic aorta are normal in caliber. The aortic arch demo nstrates standard 3-vessel anatomy. Right carotid arterial system: The right common carotid artery is widely patent, as are the right int ernal and external carotid arteries. Left carotid arterial system: The left common carotid artery is widely patent, as are the left video production intern al and external carotid arteries. Vertebral arteries: The vertebral arteries are widely patent bilaterally. The right vertebral artery is dominant. Subclavian arteries: Widely patent bilaterally. Intracranial vasculature: The internal carotid arteries are patent at the skull base, as are the ante rior and middle cerebral arteries bilaterally. The vertebrobasilar system and posterior cerebral bella angelo are widely patent. The right vertebral artery is dominant. The left vertebral artery is diminuti ve and terminates as the PICA. There is no aneurysm, high-grade stenosis, or focal vessel cut off see n throughout the intracranial circulation. Jugular veins: Patent bilaterally. Dural sinuses: Patent. Lung apices: Partially visualized upper lobe lung parenchyma appears clear. Soft tissues: The visualized pharyngeal soft tissues are normal in appearance noting angiographic pha se technique. The oropharyngeal airway appears widely patent. The salivary and thyroid glands are nor mal in appearance. No cervical lymphadenopathy is seen. Skeletal structures: The calvarium appears intact. The cervical spine is within normal limits. Orbits: The bony orbits are intact. Orbital contents are normal in appearance noting bilateral ocular lens implants. Sinuses and mastoids: Trace mucosal thickening is noted in the left maxillary antrum. The remaining p aranasal sinuses are clear. The mastoid air cells are well pneumatized. IMPRESSION: 1. There is no hemorrhage, mass effect, or evidence of acute territorial ischemia by CT criteria. 2. Unremarkable CT angiogram of the brain. 3. Unremarkable CT angiogram of the neck. ACT 112: Negative or not required by law. Electronically signed by: Nino Martinez M.D. 10/26/2019 1:26 PM
[2019-10-26 13:39] LABS: Partial Thromboplastin Time 26.9 Seconds (21.0-31.0); Prothrombin Time 10.5 Seconds (9.0-12.0)
[2019-10-26 13:45] LABS: Alanine Aminotransferase 31 U/L (12-78); Albumin Level 4.1 gm/dl (3.4-5.0); Aspartate Aminotransferase 22 U/L (15-37); BUN Creatinine Ratio 10.3 (10-20); Blood Urea Nitrogen 9 mg/dl (7-18); Calcium 9.6 mg/dl (8.5-10.1); Carbon Dioxide 26 mmol/L (21-32); Chloride 106 mmol/L (98-107); Creatinine Clr Calc Pharmacy 90.4 ml/min; Est GFR (African American) 90.7; Est GFR (Non-African American) 78.2; Glucose 106 mg/dl (70-99); Magnesium 2.2 mg/dl (1.8-2.4); Potassium 3.1 mmol/L (3.5-5.1); Sodium 140 mmol/L (136-145)
[2019-10-26 13:49] LABS: Albumin Globulin Ratio 0.9 (0.9-2); Alkaline Phosphatase 120 U/L (45-117); Bilirubin,Total 0.9 mg/dl (0.2-1); Globulin 4.7 gm/dl (2.5-4.0); Total Protein 8.8 gm/dl (6.4-8.2); Troponin I < 0.015 ng/ml (0-0.045)
[2019-10-26] MEDS ORDERED: ASPIRIN CHEW 324 MG ONE (13:49)
[2019-10-26] MEDS ORDERED: POTASSIUM CHLORIDE 20 MEQ TABCR PO STA (13:53)
[2019-10-26] MEDS ORDERED: SODIUM CHLORIDE 0.9% 1000ML 1,000 ML IV STA (13:53)
[2019-10-26] MEDS ORDERED: ASPIRIN CHEW 324 MG PO STA (13:53)
[2019-10-26] MEDS ORDERED: ATORVASTATIN 40 MG TAB PO STA (14:25)
[2019-10-26 14:36] LABS: Appearance Urine Clear (Clear); Bilirubin Urine Negative (Negative); Blood Urine Negative (Negative); Color Urine Yellow; Glucose Urine UA Negative (Negative); Ketones Urine Negative (Negative); Leukocyte Esterase Urine Negative (Negative); Nitrite Urine Negative (Negative); Protein Urine Negative (Negative); Specific Gravity Urine 1.013 (1.000-1.030); Urobilinogen Urine Negative (Negative); pH Urine 6.5 (4.5-7.5)
--- NOTE | 2019-10-26 15:02 | XRay Report ---
XR chest 1V portable CLINICAL HISTORY: facial numbness COMPARISON STUDY: 11/24/2013 FINDINGS: The cardiac and mediastinal contours are normal. There is no evidence of focal pulmonary co nsolidation. There is no evidence of failure. No pleural effusions are visualized.[There is stable ta pering of distal right clavicle, likely either posttraumatic or postsurgical. IMPRESSION: No active disease in the chest. ACT 112: Negative or not required by law. Electronically signed by: Marky Nunn M.D. 10/26/2019 3:01 PM
--- NOTE | 2019-10-26 15:22 | Electrocardiogram Report ---
Test Reason : Blood Pressure : / mmHG Vent. Rate : 078 BPM Atrial Rate : 078 BPM P-R Int : 132 ms QRS Dur : 080 ms QT Int : 430 ms P-R-T Axes : 056 033 030 degrees QTc Int : 490 ms Normal sinus rhythm Possible Left atrial enlargement Nonspecific ST and T wave abnormality Prolonged QT Abnormal ECG When compared with ECG of 21-SEP-2019 12:58, T wave inversion no longer evident in Inferior leads T wave inversion no longer evident in Lateral leads Confirmed by Corey Gomez ([id number]) on 10/26/2019 3:21:52 PM Referred By: SELF Confirmed By:Corey Gomez
--- NOTE | 2019-10-26 16:20 | History & Physical Report ---
Date of Service October 26, 2019 Assessment & Plan (1) Stroke-like episode: Present on admission with dizziness associated with right sided facial numbness Stroke alert called, but not a candidate for TPA since symptoms improved Need to r/o acute CVA CT/CTA head and neck showed no hemorrhage, mass effect, or evidence of acute territorial ischemia Received Aspirin 324 mg and statin in the ER Will consult neurology Will get a resting ECHO to r/o any atrial shunt PT/OT/Speech evaluation Will start on aspirin 81 mg in am and statin Will monitor blood pressure to allow permissive hypertensive Continue neuro check Will monitor closely in telemetry Hypertensive Urgency BP on admission 222/110 possible related to anxiety in the hospital setting Will allow permissive hypertension Will monitor BP and if above 185 systolic, will give a low dose of hydralazine IV Continue monitor BP closely Right ear pain Will need to follow with ENT outpatient Anxiety Continue Xanax prn DVT px will heparin subq CODE status full code History of Present Illness Chief Complaint: Stroke like symptoms Primary Care Provider: Christian Wallace MD 54 years old female with past medical history of chronic sinusitis, palpitation, anxiety, PTSD presented to the ER with strokelike symptoms. Pt said that this morning she developed numbness around the corner of her right lip, then gradually worsening where she became numb in the right facial area. She said that her right ear felt warm and achy. She said that she has been having problem with her right ear where she called her ENT provider today to give her an early appointment. She said that her right upper extremity felt numb and heavy. She said that her gait was a little unsteady due to the dizziness and her right lower extremity was heavy. She said that she never experienced any symptoms like that before except the ear discomfort. She denies any slurred speech, blurry vision, chest pain, palpitation and SOB. She said that she has a family history of aortic aneurysm and her sister just with a massive blood clot. Stroke alert was called and the ER physician discussed the case with the tele stroke in [place] where no TPA was given since her symptoms were improved. Currently pt said that she only has a very mild numbness at the corner of her right lip. She said that she gets very anxious anytime she comes to the hospital. Allergies Allergy/AdvReac Type Severity Reaction Status Date / Time KACEY Inhibitors Allergy Severe "THROAT Verified 10/26/19 14:16 CLOSES" Cephalosporins Allergy Intermediate FACIAL/MOUTH Verified 10/26/19 14:16 EDEMA,FLUSHING hydrochlorothiazide Allergy Intermediate "MADE FACE Verified 10/26/19 14:16 GO NUMB" epinephrine AdvReac Intermediate LOW BP DID Verified 10/26/19 14:16 NOT RESPOND TO EPI adhesive AdvReac Mild UNKNOWN Verified 10/26/19 14:16 Home Medications Home Medications Medication Instructions Recorded Confirmed Type alprazolam 0.25 mg PO DAILY PRN 09/18/19 10/26/19 History baclofen 10 mg PO DAILY PRN 09/18/19 10/26/19 History metoprolol tartrate 25 mg PO BID 09/18/19 10/26/19 History Ventolin HFA 2 puff PO QID PRN 10/26/19 10/26/19 History acetaminophen 650 mg PO Q6H PRN 10/26/19 10/26/19 History omeprazole 20 mg PO DAILY@1800 10/26/19 10/26/19 History vit A-vit D-osqxeb-irsp-copper 2 cap PO QAM 10/26/19 10/26/19 History [Pclo-Blbf-Kioz(vit A,C-biotin)] Past Med/Surg History Medical History (Updated 10/26/19 @ 16:44 by Praneeth Fernandez MD) [place]'s disease (10/06/12) H1N1 influenza developed ARDS and was placed in coma for 1 month Hypertensive urgency Surgical History No significant past surgical history Social History Smoking Status: Never smoker Hx Alcohol Use: No Hx Substance Use: No Preferred Language: Kuwaiti Communication Ability: Effective Glass Engraver Required: No Beliefs That Will Affect Care: None marital status: Current Living Situation: Spouse and Family current occupational status: employed Other Information That Helps Us Care for You: No Feels Safe at Home: Yes Safety Concerns: Feels Safe At This Time Review of Systems Review of Systems: All systems reviewed & are unremarkable except as noted in HPI & below Physical Exam Physical Exam: General- No acute distress Head- atraumatic Eyes- PERRL, EOMI, ENT- oropharynx clear, decrease hearing function in the right ear Neck- supple, no JVD Lungs- clear to auscultation Heart- regular rhythm; no murmur Abdomen- normal bowel sounds, soft, nontender Extremities- no calf tenderness Neuro- alert, oriented x 3; PERRL, EOMI; no facial palsy; no dysarthria, decrease sensation in the Right facial area Skin- warm & dry Results & Data Results & Data ([facility]) Vital Signs (Past 12 Hours) Vital Signs Temp Pulse Pulse Resp BP BP Pulse Ox 10/26/19 15:51 64 18 170/93 H 98 10/26/19 14:01 71 20 192/89 H 98 10/26/19 13:48 78 20 187/93 H 97 10/26/19 13:31 82 20 202/114 H 98 10/26/19 12:45 36.6 C 68 18 222/110 H 99 Diagnostic Findings XR chest 1V portable CLINICAL HISTORY: facial numbness COMPARISON STUDY: 11/24/2013 FINDINGS: The cardiac and mediastinal contours are normal. There is no evidence of focal pulmonary consolidation. There is no evidence of failure. No pleural effusions are visualized.[There is stable tapering of distal right clavicle, likely either posttraumatic or postsurgical. IMPRESSION: No active disease in the chest. ACT 112: Negative or not required by law. Electronically signed by: Marky Nunn M.D. 10/26/2019 3:01 PM Dictated: 10/26/19 1500 Transcribed: 10/26/[address] OF THE BRAIN; CT ANGIOGRAM OF THE BRAIN; CT ANGIOGRAM OF THE NECK CLINICAL HISTORY: Strokelike symptoms. COMPARISON STUDY: CT of the brain dated 11/24/2013. CT angiogram of the brain dated 04/21/2013. TECHNIQUE: Unenhanced axial CT scan of the brain is performed. Subsequently, following the IV administration of 120 of Optiray 320, CT angiogram of the head and neck was performed from the aortic arch to the vertex. Images are reviewed in the axial, sagittal, and coronal planes. 3-D MIPS images are created and as sessed. IV contrast was administered without complication. All measurements were calculated based on NASCET criteria. A dose lowering technique was utilized adhering to the principles of ALARA. CT DOSE: 1123.05 mGy.cm FINDINGS: Brain parenchyma: The brain parenchyma is normal in appearance. There is no hemorrhage, mass effect, or evidence of acute territorial ischemia by CT criteria. There is no evidence of enhancing mass lesion on the angiogram phase images. The ventricles, sulci, and cisterns are normal in configuration. Mcdonough- white matter differentiation is preserved. No extra-axial fluid collection is seen. Thoracic aorta: Visualized portions of the thoracic aorta are normal in caliber. The aortic arch demonstrates standard 3-vessel anatomy. Right carotid arterial system: The right common carotid artery is widely patent, as are the right internal and external carotid arteries. Left carotid arterial system: The left common carotid artery is widely patent, as are the left internal and external carotid arteries. Vertebral arteries: The vertebral arteries are widely patent bilaterally. The right vertebral artery is dominant. Subclavian arteries: Widely patent bilaterally. Intracranial vasculature: The internal carotid arteries are patent at the skull base, as are the anterior and middle cerebral arteries bilaterally. The vertebrobasilar system and posterior cerebral arteries are widely patent. The right vertebral artery is dominant. The left vertebral artery is diminutive and terminates as the PICA. There is no aneurysm, high-grade stenosis, or focal vessel cut off seen throughout the intracranial circulation. Jugular veins: Patent bilaterally. Dural sinuses: Patent. Lung apices: Partially visualized upper lobe lung parenchyma appears clear. Soft tissues: The visualized pharyngeal soft tissues are normal in appearance noting angiographic phase technique. The oropharyngeal airway appears widely patent. The salivary and thyroid glands are normal in appearance. No cervical lymphadenopathy is seen. Skeletal structures: The calvarium appears intact. The cervical spine is within normal limits. Orbits: The bony orbits are intact. Orbital contents are normal in appearance noting bilateral ocular lens implants. Sinuses and mastoids: Trace mucosal thickening is noted in the left maxillary antrum. The remaining paranasal sinuses are clear. The mastoid air cells are well pneumatized. IMPRESSION: 1. There is no hemorrhage, mass effect, or evidence of acute territorial ischemia by CT criteria. 2. Unremarkable CT angiogram of the brain. 3. Unremarkable CT angiogram of the neck. ACT 112: Negative or not required by law. Electronically signed by: Nino Martinez M.D. 10/26/2019 1:26 PM Dictated: 10/26/19 1319 Transcribed: 10/26/191318 UNENHANCED CT OF THE BRAIN; CT ANGIOGRAM OF THE BRAIN; CT ANGIOGRAM OF THE NECK CLINICAL HISTORY: Strokelike symptoms. COMPARISON STUDY: CT of the brain dated 11/24/2013. CT angiogram of the brain dated 04/21/2013. TECHNIQUE: Unenhanced axial CT scan of the brain is performed. Subsequently, following the IV administration of 120 of Optiray 320, CT angiogram of the head and neck was performed from the aortic arch to the vertex. Images are reviewed in the axial, sagittal, and coronal planes. 3-D MIPS images are created and assessed. IV contrast was administered without complication. All measurements were calculated based on NASCET criteria. A dose lowering technique was utilized adhering to the principles of ALARA. CT DOSE: 1123.05 mGy.cm FINDINGS: Brain parenchyma: The brain parenchyma is normal in appearance. There is no hemorrhage, mass effect, or evidence of acute territorial ischemia by CT criteria. There is no evidence of enhancing mass lesion on the angiogram phase images. The ventricles, sulci, and cisterns are normal in configuration. Mcdonough- white matter differentiation is preserved. No extra-axial fluid collection is seen. Thoracic aorta: Visualized portions of the thoracic aorta are normal in caliber. The aortic arch demonstrates standard 3-vessel anatomy. Right carotid arterial system: The right common carotid artery is widely patent, as are the right internal and external carotid arteries. Left carotid arterial system: The left common carotid artery is widely patent, as are the left internal and external carotid arteries. Vertebral arteries: The vertebral arteries are widely patent bilaterally. The right vertebral artery is dominant. Subclavian arteries: Widely patent bilaterally. Intracranial vasculature: The internal carotid arteries are patent at the skull base, as are the anterior and middle cerebral arteries bilaterally. The vertebrobasilar system and posterior cerebral arteries are widely patent. The right vertebral artery is dominant. The left vertebral artery is diminutive and terminates as the PICA. There is no aneurysm, high-grade stenosis, or focal vessel cut off seen throughout the intracranial circulation. Jugular veins: Patent bilaterally. Dural sinuses: Patent. Lung apices: Partially visualized upper lobe lung parenchyma appears clear. Soft tissues: The visualized pharyngeal soft tissues are normal in appearance noting angiographic phase technique. The oropharyngeal airway appears widely patent. The salivary and thyroid glands are normal in appearance. No cervical lymphadenopathy is seen. Skeletal structures: The calvarium appears intact. The cervical spine is within normal limits. Orbits: The bony orbits are intact. Orbital contents are normal in appearance noting bilateral ocular lens implants. Sinuses and mastoids: Trace mucosal thickening is noted in the left maxillary antrum. The remaining paranasal sinuses are clear. The mastoid air cells are well pneumatized. IMPRESSION: 1. There is no hemorrhage, mass effect, or evidence of acute territorial ischemia by CT criteria. 2. Unremarkable CT angiogram of the brain. 3. Unremarkable CT angiogram of the neck. ACT 112: Negative or not required by law. Electronically signed by: Nino Martinez M.D. 10/26/2019 1:26 PM Dictated: 10/26/19 1319 Transcribed: 10/26/[address] OF THE BRAIN; CT ANGIOGRAM OF THE BRAIN; CT ANGIOGRAM OF THE NECK CLINICAL HISTORY: Strokelike symptoms. COMPARISON STUDY: CT of the brain dated 11/24/2013. CT angiogram of the brain dated 04/21/2013. TECHNIQUE: Unenhanced axial CT scan of the brain is performed. Subsequently, following the IV administration of 120 of Optiray 320, CT angiogram of the head and neck was performed from the aortic arch to the vertex. Images are reviewed in the axial, sagittal, and coronal planes. 3-D MIPS images are created and assessed. IV contrast was administered without complication. All measurements were calculated based on NASCET criteria. A dose lowering technique was utilized adhering to the principles of ALARA. CT DOSE: 1123.05 mGy.cm FINDINGS: Brain parenchyma: The brain parenchyma is normal in appearance. There is no hemorrhage, mass effect, or evidence of acute territorial ischemia by CT criteria. There is no evidence of enhancing mass lesion on the angiogram phase images. The ventricles, sulci, and cisterns are normal in configuration. Mcdonough- white matter differentiation is preserved. No extra-axial fluid collection is seen. Thoracic aorta: Visualized portions of the thoracic aorta are normal in caliber. The aortic arch demonstrates standard 3-vessel anatomy. Right carotid arterial system: The right common carotid artery is widely patent, as are the right internal and external carotid arteries. Left carotid arterial system: The left common carotid artery is widely patent, as are the left internal and external carotid arteries. Vertebral arteries: The vertebral arteries are widely patent bilaterally. The right vertebral artery is dominant. Subclavian arteries: Widely patent bilaterally. Intracranial vasculature: The internal carotid arteries are patent at the skull base, as are the anterior and middle cerebral arteries bilaterally. The vertebrobasilar system and posterior cerebral arteries are widely patent. The right vertebral artery is dominant. The left vertebral artery is diminutive and terminates as the PICA. There is no aneurysm, high-grade stenosis, or focal vessel cut off seen throughout the intracranial circulation. Jugular veins: Patent bilaterally. Dural sinuses: Patent. Lung apices: Partially visualized upper lobe lung parenchyma appears clear. Soft tissues: The visualized pharyngeal soft tissues are normal in appearance noting angiographic phase technique. The oropharyngeal airway appears widely patent. The salivary and thyroid glands are normal in appearance. No cervical lymphadenopathy is seen. Skeletal structures: The calvarium appears intact. The cervical spine is within normal limits. Orbits: The bony orbits are intact. Orbital contents are normal in appearance noting bilateral ocular lens implants. Sinuses and mastoids: Trace mucosal thickening is noted in the left maxillary antrum. The remaining paranasal sinuses are clear. The mastoid air cells are well pneumatized.
[2019-10-26] MEDS ORDERED: BACLOFEN 10 MG TAB PO PRN (16:25)
[2019-10-26] MEDS ORDERED: PHARMACIST DISCHARGE MED REC CONSULT PRN (16:25)
[2019-10-26] MEDS ORDERED: ALPRAZolam 0.25 MG TABLET PO PRN (16:25)
--- NOTE | 2019-10-26 16:34 | Emergency Department Note ---
Impression & Plan Hypertensive emergency, Right sided numbness ED Provider Note INFORMANT: Patient ED PROVIDER(S): Emanuel Koch MD CHIEF COMPLAINT: Numbness PLAN: Disposition: Admitted Condition: Good Outpatient prescription management: None MEDICAL DECISION MAKING: Patient presented with complaints of numbness and weakness. She was evaluated promptly and a stroke alert was initiated. The patient had an unremarkable CT angiogram of the head and neck. The patient had a stroke consult placed with [facility] garry-stroke, Dr. Oneal. The patient was beginning to feel better. She had significant hypertension noted initially and this was gradually improving without direct intervention. After tele-stroke evaluation, patient was recommended to continue IV hydration, admission for stroke work-up, and received aspirin. She did get this and also received 40 mg of oral Lipitor per tele-stroke. The patient was reassessed and was doing well. Further management will be necessary in the hospital. The [facility] service was consulted. The patient was evaluated in the ER for further management. Triage Nursing notes reviewed and agree them. Prior medical records reviewed hypertension noted. Patient was previously on amlodipine. Vital Signs: reviewed and remarkable for significant hypertension Differential diagnosis: TIA, CVA, benign hypertension, hypertensive emergency, cardiovascular pathology, toxicologic, pheochromocytoma, electrolyte abnormality, renal disease, endorgan damage, as well as other pathologies. Diagnostics interpreted by me: ECG: Twelve-lead ECG reveals normal sinus rhythm at 78 bpm. There is left atrial enlargement. Nonspecific ST. Prolonged QT present. No PVCs or PACs.. Cardiac Monitoring: Cardiac monitoring ordered by me: The patient was placed on continuous cardiac monitoring and observed. It revealed a normal sinus rhythm at 72 beats per minute without ectopy or evidence of dysrhythmia. Imaging studies: CT angiogram of the head and neck negative for acute stroke, dissection or process. CT head negative. Chest x-ray negative for acute process. I refer you to the EMR for further details. Consultation(s): [facility] tele-stroke [facility] service, Dr. Fernandez HPI: The patient is a 54 year old female who presents to the Emergency Room with complaints of right-sided numbness. This started 2 hours ago and is persisting. The patient also notes the following associated symptoms, some difficulty walking with weakness on the right side. The patient has found no relieving factors. Current pain is rated as 0/10. Patient notes history of high blood pressure. She was on metoprolol and prescribed Norvasc but stopped the Norvasc due to ankle swelling. Pt denies LOC, headache, fevers, chills, diaphoresis, visual changes, neck pain, chest pain, breathing difficulties, nausea, vomiting, abdominal pain, back pain, melena, hematochezia, urinary symptoms, lymphadenopathy, rash, or other complaints. ROS: See above HPI for pertinent positives & negatives. A total of 10 systems reviewed and were otherwise negative. PAST MEDICAL HISTORY:See Below, hypertension PAST SURGICAL HISTORY:See Below FAMILY HISTORY:See Below SOCIAL HISTORY:See Below, no smoking HOME MEDICATIONS:See Below ALLERGIES:See Below VITALS:See Below PHYSICAL EXAMINATION: GENERAL: Awake, alert, well appearing, no distress HENT: Normocephalic, atraumatic. TM's normal. Oropharynx unremarkable. EYES: PERRL. EOMI. Normal conjunctiva. Sclera non-icteric. NECK: Supple. Normal inspection. Non-tender. No nuchal rigidity. FROM. No bruit. RESPIRATORY: Breath sounds equal. No wheezes. No rhonchi. Normal respiratory effort. CARDIAC: Normal rate. Regular rhythm. No murmurs. No rubs. No JVD. GI: Soft, non distended. No tenderness to palpation. No rebound or guarding. No masses. RECTAL: Deferred. MUSCULOSKELETAL: Unremarkable. No edema. No discoloration. Gross motor strength symmetric. NEURO: Cranial nerves 2-12 grossly intact. Normal sensorium. No sensory or motor deficits noted except for subjective tingling on the right side of her face and right arm and leg. Speech normal. No pronator drift. Normal rapid alternating movements. SKIN: No rash or jaundice noted. LYMPH: No adenopathy. 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 Hypertensive urgency Surgical History No significant past surgical history Social History Smoking Status: Never smoker Hx Alcohol Use: No Hx Substance Use: No Preferred Language: Welsh Communication Ability: Effective Environmental Management Specialist Required: No Beliefs That Will Affect Care: None marital status: Current Living Situation: Spouse and Family current occupational status: employed Other Information That Helps Us Care for You: No Feels Safe at Home: Yes Safety Concerns: Feels Safe At This Time Allergies Allergies Allergy/AdvReac Type Severity Reaction Status Date / Time KACEY Inhibitors Allergy Severe "THROAT Verified 10/26/19 14:16 CLOSES" Cephalosporins Allergy Intermediate FACIAL/MOUTH Verified 10/26/19 14:16 EDEMA,FLUSHING hydrochlorothiazide Allergy Intermediate "MADE FACE Verified 10/26/19 14:16 GO NUMB" epinephrine AdvReac Intermediate LOW BP DID Verified 10/26/19 14:16 NOT RESPOND TO EPI adhesive AdvReac Mild UNKNOWN Verified 10/26/19 14:16 Home Meds Home Medications Medication Instructions Recorded Confirmed alprazolam 0.25 mg PO DAILY PRN 09/18/19 10/26/19 baclofen 10 mg PO DAILY PRN 09/18/19 10/26/19 metoprolol tartrate 25 mg PO BID 09/18/19 10/26/19 omeprazole 20 mg PO DAILY@1800 10/26/19 10/26/19 vit A-vit G-mnzikl-sxyb-copper 2 cap PO QAM 10/26/19 10/26/19 [[id number]-[id number]-Uhpo(vit A,C-biotin)] Results & Data (ED) Vital Signs Vital Signs - 24 hr 10/26/19 12:45 10/26/19 13:31 10/26/19 13:48 Temperature 36.6 C Temperature Source Oral Pulse Rate 68 Pulse Rate [Left Finger] 82 78 Respiratory Rate 18 20 20 Respiratory Effort / Characteristics Non-Labored Spontaneous Respiratory Depth Normal Respiratory Pattern Regular Blood Pressure 222/110 H Blood Pressure [Right Arm] 202/114 H 187/93 H Blood Pressure Mean 147 Blood Pressure Mean [Right Arm] 143 124 Pulse Oximetry 99 98 97 Oxygen Delivery Method Room Air Room Air Room Air Sepsis Recent Fever Within 48 Hours No Sepsis New/Unexplained Change in Mental Status No Sepsis Action Taken by Nursing No Action Required 10/26/19 14:01 Temperature Temperature Source Pulse Rate Pulse Rate [Left Finger] 71 Respiratory Rate 20 Respiratory Effort / Characteristics Respiratory Depth Respiratory Pattern Blood Pressure Blood Pressure [Right Arm] 192/89 H Blood Pressure Mean Blood Pressure Mean [Right Arm] 123 Pulse Oximetry 98 Oxygen Delivery Method Room Air Sepsis Recent Fever Within 48 Hours Sepsis New/Unexplained Change in Mental Status Sepsis Action Taken by Nursing Laboratory Data Result diagrams: 10/26/19 13:10/26/19 13:09 Lab Results 10/26/19 10/26/19 10/26/19 Range/Units 13:09 13:09 13:09 WBC 6.69 (4.8-10.8) K/uL RBC 4.65 (4.2-5.4) M/uL Hgb 14.3 (12.0-16.0) g/dL Hct 42.1 (37-47) % MCV 90.5 (80-100) fL MCH 30.8 (25-34) pg MCHC 34.0 (32-36) g/dL RDW Std Deviation 43.4 (36.4-46.3) fL RDW Coeff of Jose 13.3 (11.5-14.5) % Plt Count 324 (130-400) K/uL MPV 8.9 (7.4-10.4) fL Immature Gran % (Auto) 0.1 % Neut % (Auto) 63.6 % Lymph % (Auto) 27.5 % [place] % (Auto) 6.0 % Eos % (Auto) 2.4 % Baso % (Auto) 0.4 % Neut # (Auto) 4.25 (1.4-6.5) K/uL Lymph # (Auto) 1.84 (1.2-3.4) K/uL [place] # (Auto) 0.40 (0.11-0.59) K/uL Eos # (Auto) 0.16 (0-0.5) K/uL Baso # (Auto) 0.03 (0-0.2) K/uL Immature Gran # (Auto) 0.01 (0.00-0.02) K/uL PT 10.5 (9.0-12.0) Seconds INR 1.0 (0.9-1.1) APTT 26.9 (21.0-31.0) Seconds PTT Ratio 1.0 Sodium (136-145) mmol/L Potassium (3.5-5.1) mmol/L Chloride (98-107) mmol/L Carbon Dioxide (21-32) mmol/L Anion Gap (3-11) BUN (7-18) mg/dl Creatinine (0.6-1.2) mg/dl Est Cr Clr Drug Dosing ml/min Est GFR ( Amer) Est GFR (Non-Af Amer) BUN/Creatinine Ratio (10-20) Glucose (70-99) mg/dl POC Glucose (70-99) mg/dl Calcium (8.5-10.1) mg/dl Magnesium (1.8-2.4) mg/dl Total Bilirubin (0.2-1) mg/dl AST (15-37) U/L ALT (12-78) U/L Alkaline Phosphatase (45-117) U/L Troponin I (0-0.045) ng/ml Total Protein (6.4-8.2) gm/dl Albumin (3.4-5.0) gm/dl Globulin (2.5-4.0) gm/dl Albumin/Globulin Ratio (0.9-2) Urine Color Urine Appearance (Clear) Urine pH (4.5-7.5) Ur Specific [place] (1.000-1.030) Urine Protein (Negative) Urine Glucose (UA) (Negative) Urine Ketones (Negative) Urine Blood (Negative) Urine Nitrite (Negative) Urine Bilirubin (Negative) Urine Urobilinogen (Negative) Ur Leukocyte Esterase (Negative) Blood Type O Positive Antibody Screen POSITIVE A Antibody Identification Anti-K Antigen Identification K Antigen - NEGATIVE 10/26/19 10/26/19 10/26/19 Range/Units 13:09 13:25 13:28 WBC (4.8-10.8) K/uL RBC (4.2-5.4) M/uL Hgb (12.0-16.0) g/dL Hct (37-47) % MCV (80-100) fL MCH (25-34) pg MCHC (32-36) g/dL RDW Std Deviation (36.4-46.3) fL RDW Coeff of Jose (11.5-14.5) % Plt Count (130-400) K/uL MPV (7.4-10.4) fL Immature Gran % (Auto) % Neut % (Auto) % Lymph % (Auto) % [place] % (Auto) % Eos % (Auto) % Baso % (Auto) % Neut # (Auto) (1.4-6.5) K/uL Lymph # (Auto) (1.2-3.4) K/uL [place] # (Auto) (0.11-0.59) K/uL Eos # (Auto) (0-0.5) K/uL Baso # (Auto) (0-0.2) K/uL Immature Gran # (Auto) (0.00-0.02) K/uL PT (9.0-12.0) Seconds INR (0.9-1.1) APTT (21.0-31.0) Seconds PTT Ratio Sodium 140 (136-145) mmol/L Potassium 3.1 L (3.5-5.1) mmol/L Chloride 106 (98-107) mmol/L Carbon Dioxide 26 (21-32) mmol/L Anion Gap 8.0 (3-11) BUN 9 (7-18) mg/dl Creatinine 0.84 (0.6-1.2) mg/dl Est Cr Clr Drug Dosing 90.4 ml/min Est GFR ( Amer) 90.7 Est GFR (Non-Af Amer) 78.2 BUN/Creatinine Ratio 10.3 (10-20) Glucose 106 H (70-99) mg/dl POC Glucose 105 H (70-99) mg/dl Calcium 9.6 (8.5-10.1) mg/dl Magnesium 2.2 (1.8-2.4) mg/dl Total Bilirubin 0.9 (0.2-1) mg/dl AST 22 (15-37) U/L ALT 31 (12-78) U/L Alkaline Phosphatase 120 H (45-117) U/L Troponin I < 0.015 (0-0.045) ng/ml Total Protein 8.8 H (6.4-8.2) gm/dl Albumin 4.1 (3.4-5.0) gm/dl Globulin 4.7 H (2.5-4.0) gm/dl Albumin/Globulin Ratio 0.9 (0.9-2) Urine Color Yellow Urine Appearance Clear (Clear) Urine pH 6.5 (4.5-7.5) Ur Specific [place] 1.013 (1.000-1.030) Urine Protein Negative (Negative) Urine Glucose (UA) Negative (Negative) Urine Ketones Negative (Negative) Urine Blood Negative (Negative) Urine Nitrite Negative (Negative) Urine Bilirubin Negative (Negative) Urine Urobilinogen Negative (Negative) Ur Leukocyte Esterase Negative (Negative) Blood Type Antibody Screen Antibody Identification Antigen Identification Administered Medications Sodium Chloride (Nss 1000ml) 1,000 mls @ 125 mls/hr IV .Q8H STA Stop: 10/26/19 21:52 Last Admin: 10/26/19 13:57 Dose: 125 mls/hr Documented by: [id number] Discontinued Medications Aspirin (Aspirin Chew 324 Mg) Confirm Administered Dose 324 mg .ROUTE .STK-MED ONE Stop: 10/26/19 13:50 Last Admin: 10/26/19 13:56 Dose: 324 mg Documented by: [id number] Aspirin (Aspirin Chew 324 Mg) 324 mg PO NOW STA Stop: 10/26/19 13:54 Last Admin: 10/26/19 13:57 Dose: Not Given Documented by: [id number] Atorvastatin Calcium (Atorvastatin 40 Mg Tab) 40 mg PO NOW STA Stop: 10/26/19 14:26 Last Admin: 10/26/19 14:50 Dose: 40 mg Documented by: [id number] Sodium Chloride (Nss 1000ml) 1,000 mls @ 50 mls/hr IV .Q20H KIM Stop: 11/25/19 12:59 Last Admin: 10/26/19 13:57 Dose: Not Given Documented by: [id number] Ioversol (Optiray 320 125ml) 120 ml IV ONCE ONE Stop: 10/26/19 13:10 Last Admin: 10/26/19 13:09 Dose: 120 ml Documented by: [id number] Potassium Chloride (Potassium Chloride 20 Meq Tabcr) 40 meq PO NOW STA Stop: 10/26/19 13:54 Last Admin: 10/26/19 13:59 Dose: 40 meq Documented by: [id number] Discharge Plan Visit Data Chief Complaint: Neuro Symptoms/Deficit Stated Complaint: STROKE SYMPTOMS, POSSIBLE EAR ISSUE ED Provider: Emanuel Koch Discharge Problem: Hypertensive emergency, Right sided numbness Patient Disposition: Admitted As Inpatient Discharge Instructions Interventions: ED Discharge Assessment Last Done: 10/26/19 16:07
[2019-10-26] MEDS ORDERED: HydrALAZINE HCL 20 MG/ML VIAL IV PRN (17:09)
[2019-10-26] MEDS: PANTOprazole 40 MG TAB PO SCH (18:06)
[2019-10-26] MEDS ORDERED: GADOBUTROL 65ML VIAL IV ONE (19:55)
--- NOTE | 2019-10-26 20:11 | Magnetic Resonance Report ---
MR brain wo/w con HISTORY: 54 years-old Female Stroke like symptoms acute right face, upper and lower extremity weakne ss with dizziness. COMPARISON: Head CT, CTA head neck of same day TECHNIQUE: MRI of the brain was obtained both with and without the use of 8.5 mL Gadavist FINDINGS: Boarder Steam localizer images demonstrate no gross extracranial abnormality. There is no restricted diffusio n to suggest acute or subacute infarct. Midline structures including the corpus callosum, brainstem, optic chiasm, pituitary and pineal glands appear unremarkable on the sagittal T1 series. No cerebella r tonsillar herniation. Degenerative changes are noted involving the imaged cervical spine. No acute intracranial hemorrhage, midline shift, abnormal extra-axial collection, hydrocephalus or in tracranial mass. Mild patchy white matter T2/FLAIR hyperintensities. There is no abnormal intra-axial or extra-axial enhancement. Major vascular flow voids are patent. Mastoid air cells are clear. Mild polypoid because of thickening of the anterior left maxillary sinus. Prior bilateral lens replacement . The skull and soft tissues are unremarkable. IMPRESSION: 1. No acute intracranial abnormality, specifically there is no evidence of acute or subacute infarct. 2. Mild patchy T2/FLAIR white matter hyperintensities are nonspecific however statistically would fav or chronic microvascular ischemic disease. 3. No abnormal enhancement. ACT 112: Negative or not required by law. The above report was generated using voice recognition software. It may contain grammatical, syntax o r spelling errors. Electronically signed by: Carlton Yee M.D. 10/26/2019 8:10 PM
[2019-10-26] MEDS: METOPROLOL TARTRATE 25 MG TAB PO SCH (21:04)
[2019-10-26] MEDS: HEPARIN SOD 5,000 UNIT/0.5 ML VIAL SQ SCH (21:05)
[2019-10-27] MEDS: HEPARIN SOD 5,000 UNIT/0.5 ML VIAL SQ SCH ×3 (05:23→20:20)
[2019-10-27 05:51] LABS: Estimated Average Glucose 114 mg/dl; Hemoglobin A1C 5.6 % (4.5-5.6)
[2019-10-27 06:02] LABS: Basophils # (auto) 0.03 K/uL (0-0.2); Basophils % (auto) 0.5 %; Eosinophils # (auto) 0.24 K/uL (0-0.5); Eosinophils % (auto) 3.6 %; Hematocrit (blood only) 37.9 % (37-47); Hemoglobin 12.7 g/dL (12.0-16.0); Lymphocytes # (auto) 1.94 K/uL (1.2-3.4); Lymphocytes % (auto) 29.4 %; Mean Corpuscular Hemoglobin 30.5 pg (25-34); Mean Corpuscular Hgb Conc 33.5 g/dL (32-36); Mean Corpuscular Volume 91.1 fL (80-100); Monocytes # (auto) 0.48 K/uL (0.11-0.59); Monocytes % (auto) 7.3 %; Neutrophils # (auto) 3.91 K/uL (1.4-6.5); Neutrophils % (auto) 59.2 %; Platelet Count 295 K/uL (130-400); RDW Standard Deviation 43.2 fL (36.4-46.3); Red Blood Count 4.16 M/uL (4.2-5.4)
[2019-10-27 06:46] LABS: BUN Creatinine Ratio 10.6 (10-20); Calcium 8.9 mg/dl (8.5-10.1); Creatinine Clr Calc Pharmacy 92.6 ml/min; Est GFR (African American) 93.4; Est GFR (Non-African American) 80.6; Potassium 3.7 mmol/L (3.5-5.1)
[2019-10-27 06:49] LABS: Thyroid Stimulating Hormone 1.55 uIu/ml (0.300-4.500)
[2019-10-27 07:09] LABS: Lyme Ab IgG w/WB Rflx Negative (Negative); Lyme Ab IgM w/WB Rflx Negative (Negative)
[2019-10-27] MEDS: METOPROLOL TARTRATE 25 MG TAB PO SCH ×2 (08:18→20:19)
[2019-10-27] MEDS: ATORVASTATIN 40 MG TAB PO SCH (08:18)
[2019-10-27] MEDS: ASPIRIN 81 MG ECTAB PO SCH (08:18)
--- NOTE | 2019-10-27 10:15 | Communication Note ---
Date of Service: October 27, 2019 pt remains completely asymptomatic -resolution of rt face and arm numbness BP stable 136/77 MRI of brain no acute or subacute CVA /evidence chronic microvascular ischemic disease medically stable to be discharged home later today -after neurology eval pt will be discharged on Aspirin 81 mg daily ( was not on it previously ) stain with goal LDL < 70 ( current LDL 93 ) plan of care discussed with patient in detail , agreeable with above Carmelina Pulido MD
--- NOTE | 2019-10-27 12:52 | Hospitalist Progress Note ---
Date of Service October 27, 2019 Assessment & Plan (1) Stroke-like episode: Present on admission with dizziness associated with right sided facial numbness Stroke alert called, but not a candidate for TPA since symptoms improved CT/CTA head and neck showed no hemorrhage, mass effect, or evidence of acute territorial ischemia MRI of brain shows no acute or subacute infarct , non specific white matter change suggestive of chronic ischemic disease . pt is started on Aspirin , and statin neurology consulted Hypertensive Urgency BP on admission 222/110 BP improved in 130's pt became dizzy and lightheaded during PT orthostatic vital check , does not show significant drop of BP with change of position cont to monitor Right ear pain Will need to follow with ENT outpatient Anxiety Continue Xanax prn DVT px will heparin subq CODE status full code DISPOSITION : observe pt overnight for episode of dizzy spell with activity plan to dc home in next 24-48 hrs if no symptoms pt will be transferred to medical tele Admission and Anticipated Discharge Date Admission Date: October 26, 2019 Subjective Patient seen at bedside, denies of any symptoms, numbness on the right lip area has resolved No weakness or paresthesia on right upper extremity, No other sensory or neurological deficit elsewhere of the body, No headache, no blurred vision Denies of any chest pain, shortness of breath Back pressure improved: 136/77 Review of Systems Review of Systems: All systems reviewed & are unremarkable except as noted in HPI & below Neurologic: no localized weakness, no loss of sensation, no paresthesia and no headache(s) Physical Exam Constitutional: WD/WN, vitals as above no acute distress Eyes: PERRL, conjunctivae normal, anicteric sclerae ENMT: external ear and nose normal, oropharynx normal Neck: trachea midline, no thyromegaly Respiratory: normal respiratory effort, lungs clear to auscultation Cardiovascular: RRR, no murmur, no edema Gastrointestinal (Abdomen): normal bowel sounds, soft, nontender, no hepatosplenomegaly Musculoskeletal: no cyanosis or clubbing, extremities motor strength 5/5 Skin: no rashes, warm and dry Neurologic: PERRL, EOMI, accommodation nl, no face palsy, no dysarthria Psychiatric: A+Ox3, euthymic affect Results & Data Results & Data ([facility]) Vital Signs (Past 12 Hours) Vital Signs Temp Pulse Pulse Resp BP Pulse Ox 10/27/19 11:36 37.1 C 62 18 185/93 H 97 10/27/19 08:00 51 L 10/27/19 07:26 36.8 C 53 L 18 136/77 95 10/27/19 04:00 37.1 C 66 16 149/74 H 98
--- NOTE | 2019-10-27 12:58 | Consultation Report ---
DATE OF CONSULTATION: 10/27/2019 NEUROLOGY CONSULTATION CHIEF COMPLAINT: Right facial numbness. HISTORY OF PRESENT ILLNESS: A 54-year-old woman with a history of palpitations, anxiety, and PTSD, presented to the Emergency Department yesterday afternoon for complaint of right facial numbness. Symptoms started in the morning where she developed numbness around her right lip, which gradually worsened and involved her entire right facial area. Her right ear felt warm and the right side of her face also felt achy. She also noted that her right arm felt numb and heavy. She felt that her gait felt a little bit unsteady due to some dizziness and that her right leg may have also felt heavy. She denies any prior history of similar symptoms. She does have a history of some ear discomfort. She denies any slurred speech, blurry vision, chest pain, palpitations or shortness of breath. A stroke alert was called in the Emergency Department upon arrival and a tele-stroke consultation was performed. No TPA was given. Symptoms had improved. She was admitted only with the complaint of some mild right lip numbness. Neurology was consulted for concern for a transient ischemic attack. ALLERGIES: KACEY INHIBITORS, CEPHALOSPORINS, HYDROCHLOROTHIAZIDE, EPINEPHRINE, ADHESIVE TAPE. HOME MEDICATIONS: Xanax, baclofen 10 mg as needed, metoprolol 25 mg twice daily, Ventolin inhaler as needed, Tylenol as needed, omeprazole, vitamin A, vitamin C, biotin, zinc, copper. PAST MEDICAL HISTORY: Includes Jareth's disease, anxiety, PTSD, hypertension. PAST SURGICAL HISTORY: The patient denies any recent surgeries. FAMILY HISTORY: Positive for an aortic aneurysm. Her sister had a massive blood clot. SOCIAL HISTORY: She is a nonsmoker. She is . She is currently working. Denies any alcohol use. REVIEW OF SYSTEMS: All systems reviewed and are unremarkable except as noted above in the HPI. PHYSICAL EXAMINATION: VITAL SIGNS: Blood pressure 185/93, pulse is 62, respiratory rate is 18, temperature is 37.1 degrees Celsius, oxygen saturation is 97% on room air. CONSTITUTIONAL: The patient appears normally developed and appears stated age. No distress. HEENT: Her head and face is normocephalic and atraumatic. Normal eyelids and normal conjunctivae. NECK: Supple. LUNGS: Respiratory rate is normal effort. CARDIOVASCULAR: Normal pulses. ABDOMEN: Nondistended. SKIN: No rashes, lesions or ulcers noted. PSYCHIATRIC: Normal mood and normal affect. NEUROLOGIC: She is awake, alert and oriented to person, place and time. Attention is normal. Knowledge is appropriate. She is following commands. Comprehension is intact. Speech is clear. No visual defect on confrontation. Pupils are equal and round. Extraocular muscles are intact. Facial sensation is intact. No facial asymmetry. Intact hearing. Palate is symmetric. Shoulder shrug is normal. Tongue is midline. Gait examination deferred. No ataxia with [id number] testing. Sensation is intact to light touch. Muscle tone is normal. Muscle exam is 5/5 throughout. Reflexes, negative Chris sign. Toes are downgoing bilaterally. No ankle clonus. DIAGNOSTIC TESTING AND LABORATORY VALUES: WBC is 6.60, hemoglobin 12.7, platelet count 295. INR is 1.0. Sodium 141, potassium 3.7, chloride 108, carbon dioxide 27, BUN is 9, creatinine 0.82, glucose is 89, calcium 8.9, AST and ALT are normal. Troponin is negative. LDL is 92, HDL cholesterol is 37. Vitamin B12 is 346. TSH is 1.55. MRI of the brain showed no acute intracranial abnormality. Specifically, there is no evidence of acute or subacute ischemic stroke. There is mild patchy T2 FLAIR white matter hyperintensities, which are nonspecific; however, statistically would favor chronic microvascular ischemic disease. There is no abnormal enhancement. Chest x-ray showed no active disease in the chest. Head and neck CTA showed no hemorrhage, mass effect, or evidence of acute territorial ischemia. Unremarkable CT angiogram of the brain and neck. ASSESSMENT AND PLAN: A 54-year-old woman with a history of hypertension, admitted with transient right-sided numbness and weakness secondary to a possible transient ischemic attack versus hypertensive urgency. MRI brain with and without contrast was reviewed and I am happy to report that there is no evidence of an acute ischemic stroke. CTA of the head and neck shows no high-grade stenosis or large vessel occlusion. Would recommend to start dual antiplatelet therapy for 21 days and then deescalate to 81 mg of aspirin daily. Would continue home dose of atorvastatin 40 mg daily. Recommend a gradual reduction of blood pressures with systolic blood pressure less than 140 mmHg and diastolic blood pressure less than 90 mmHg. Transthoracic echocardiogram report was also reviewed and showed a normal ejection fraction with no cardiac source of embolism. The patient can follow up with neurology in 8 weeks. Please contact me with any additional questions or concerns. MTDD
[2019-10-27] MEDS ORDERED: CLOPIDOGREL BISULFATE 75 MG TAB PO ONE (13:12)
[2019-10-27] MEDS ORDERED: ALBUTEROL HFA 8 GM INHALER INH PRN (14:38)
[2019-10-27] MEDS ORDERED: HydrALAZINE HCL 20 MG/ML VIAL IV PRN (16:12)
[2019-10-27] MEDS ORDERED: ALPRAZolam 0.25 MG TABLET PO PRN (16:13)
--- NOTE | 2019-10-27 16:38 | Communication Note ---
Date of Service: October 27, 2019 Patient revisited due to episode of dizzy spell/generalized weakness earlier, Seen in room 282 bed 1 Ports of feeling fine, does not have any weakness or paresthesia, no episode of dizzy spell, she feels like herself now Encouraged patient to be out of bed walking in the hallway, Continue to monitor in telemetry rule out any arrhythmia causing the symptoms Hypertensive urgency: Blood pressure elevated 176/100 Reviewed patient's prior vitals, patient has persistent elevated diastolic blood pressure during his hospital stay Echo does not show evidence of left ventricular hypertrophy Patient is continued with her home medication of metoprolol tartrate 25 mg twice daily Heart rate: In 60s, cannot increase beta-oleg Remains very anxious, Possible BP elevation secondary to anxiety? Mild increase in Xanax 0.25 mg every 8 hours as needed for anxiety Patient reports allergic reaction to hydrochlorothiazide, lisinopril Continue to monitor, Hospital follow-up scheduled within 1 week with family physician, to reevaluate blood pressure in clinic setting Carmelina Pulido MD
[2019-10-27] MEDS: PANTOprazole 40 MG TAB PO SCH (17:18)
[2019-10-27] MEDS ORDERED: LORATADINE 10 MG TAB PO ONE (17:30)
[2019-10-27] MEDS: ACETAMINOPHEN 325 MG TAB PO PRN (23:33)
[2019-10-28] MEDS: HEPARIN SOD 5,000 UNIT/0.5 ML VIAL SQ SCH (05:23)
[2019-10-28] MEDS: ASPIRIN 81 MG ECTAB PO SCH (08:28)
[2019-10-28] MEDS: ATORVASTATIN 40 MG TAB PO SCH (08:28)
[2019-10-28] MEDS: METOPROLOL TARTRATE 25 MG TAB PO SCH (08:29)
[2019-10-28] MEDS: ACETAMINOPHEN 325 MG TAB PO PRN (08:34)
[2019-10-28] MEDS ORDERED: CLOPIDOGREL BISULFATE 75 MG TAB PO SCH (09:00)
[2019-10-28] MEDS ORDERED: STROKE PATIENT DISCHARGE STA (12:43)
--- NOTE | 2019-10-28 13:19 | Pharmacy Report ---
Pharmacist Stroke Counseling - Date of Service October 28, 2019 - Scope: Pharmacy has been consulted to provide medication discharge counseling for this patient admitted with possible TIA as per the Pharmacist Discharge Counseling for Stroke Patients Protocol. - Medications on Discharge: Home Medications Medication Instructions Recorded Confirmed alprazolam 0.25 mg PO DAILY PRN 09/18/19 10/26/19 baclofen 10 mg PO DAILY PRN 09/18/19 10/26/19 metoprolol tartrate 25 mg PO BID 09/18/19 10/26/19 [id number]-[id number]-Nybx(vit A,C-biotin) 2 cap PO QAM 10/26/19 10/26/19 Ventolin HFA 2 puff PO QID PRN 10/26/19 10/26/19 acetaminophen 650 mg PO Q6H PRN 10/26/19 10/26/19 New Rx's Medication Instructions Recorded aspirin 81 mg PO QAM 30 Days #30 tab 10/27/19 atorvastatin 40 mg PO QAM 30 Days #30 tab 10/27/19 clopidogrel 75 mg PO QAM 21 Days #21 tab 10/27/19 - Action: The above medications, specifically ones for stroke treatment/prophylaxis, have been reviewed in detail with the patient and/or patient telemarketing sales representative(s) prior to discharge. This includes indication, common adverse reactions, drug interactions, and medication administration. Medication counseling has been em ployed using the teach-back method to ensure understanding. - Outcome: The patient and/or patient telemarketing sales representative(s) have demonstrated understanding of the medications. Additional comments: Very pleasant speaking with Ms. Mar today. She verbalized understanding of duration of plavix, aspirin and atorvastatin. Discussed common side effects and more serious side effects to look out for, administration times. Also discussed not taking her omeprazole due to an interaction with plavix, although this will only be for 21 days. Discussed another medication in class that could possibly be taken called pantoprazole. Did contact Dr. Pulido, who reported she would send a prescription for this as well. Ms. Mar had no further questions regarding these or any of her other home medications. Thank you for allowing pharmacy to be involved in the care of this patient. Please call [phone] with any additional questions
--- NOTE | 2019-10-29 13:34 | Discharge Summary ---
Date of Service October 29, 2019 Admission HPI Per Admitting Provider 54 years old female with past medical history of chronic sinusitis, palpitation, anxiety, PTSD presented to the ER with strokelike symptoms. Pt said that this morning she developed numbness around the corner of her right lip, then gradually worsening where she became numb in the right facial area. She said that her right ear felt warm and achy. She said that she has been having problem with her right ear where she called her ENT provider today to give her an early appointment. She said that her right upper extremity felt numb and heavy. She said that her gait was a little unsteady due to the dizziness and her right lower extremity was heavy. She said that she never experienced any symptoms like that before except the ear discomfort. She denies any slurred speech, blurry vision, chest pain, palpitation and SOB. She said that she has a family history of aortic aneurysm and her sister just with a massive blood clot. Stroke alert was called and the ER physician discussed the case with the tele stroke in [place] where no TPA was given since her symptoms were improved. Currently pt said that she only has a very mild numbness at the corner of her right lip. She said that she gets very anxious anytime she comes to the hospital. Principal Diagnosis TIA /STROKE LIKE SYMPTOM HYPERTENSION Discharge Exam Constitutional WD/WN, vitals as above no acute distress Eyes PERRL, conjunctivae normal, anicteric sclerae ENMT external ear and nose normal, oropharynx normal Neck trachea midline, no thyromegaly Respiratory normal respiratory effort, lungs clear to auscultation Cardiovascular RRR, no murmur, no edema Gastrointestinal (Abdomen) normal bowel sounds, soft, nontender, no hepatosplenomegaly Musculoskeletal no cyanosis or clubbing, extremities motor strength 5/5 Skin no rashes, warm and dry Neurologic PERRL, EOMI, accommodation nl, no face palsy, no dysarthria Psychiatric A+Ox3, euthymic affect Discharge Data Allergies Allergy/AdvReac Type Severity Reaction Status Date / Time KACEY Inhibitors Allergy Severe "THROAT Verified 10/26/19 14:16 CLOSES" Cephalosporins Allergy Intermediate FACIAL/MOUTH Verified 10/26/19 14:16 EDEMA,FLUSHING hydrochlorothiazide Allergy Intermediate "MADE FACE Verified 10/26/19 14:16 GO NUMB" epinephrine AdvReac Intermediate LOW BP DID Verified 10/26/19 14:16 NOT RESPOND TO EPI adhesive AdvReac Mild UNKNOWN Verified 10/26/19 14:16 Consultations 10/26/19 14:10 ED Decision to Admit Stat 10/26/19 16:25 Consult Case Management - Discharge Planning Routine Consult Neurology Routine 10/28/19 13:50 Burn CD for patient Stat Ordered Studies 10/26/19 12:59 CT angio head w con Stat CT angio neck with con Stat CT head/brain wo con Stat 10/26/19 16:25 MR brain wo/w con Routine Hospital Course (1) Stroke-like episode: Present on admission with dizziness associated with right sided facial numbness Stroke alert called, but not a candidate for TPA since symptoms improved CT/CTA head and neck showed no hemorrhage, mass effect, or evidence of acute territorial ischemia MRI of brain shows no acute or subacute infarct , non specific white matter change suggestive of chronic ischemic disease . pt is started on Aspirin , and statin neurology consulted ,Appreciate input, patient will continue with dual antiplatelet aspirin and Plavix for 3 weeks, Continue with aspirin 81 mg daily Patient will continue with statin, with goal LDL less than 70 Follow-up in neurology clinic in 3 to 4 weeks Dizzy spell /lightheadedness: No further symptoms, patient has been ambulating in hallway, no weakness or paresthesia Orthostatic blood pressure checked, no change with position Hypertensive Urgency Possible secondary to anxiety BP on admission 222/110 BP improved in 130's While at rest, Lopressor 25 mg twice daily, not be able to increase the dose of Lopressor as patient has baseline bradycardia Patient is very reluctant to add any additional antihypertensive meds Allergy reaction noted for KACEY inhibitor/HCTZ Patient instructed for low-salt diet, exercise/ weight reduction Follow-up with family physician/hospital follow-up scheduled already, Right ear pain Symptom has improved Will need to follow with ENT outpatient Anxiety Continue Xanax prn DVT px will heparin subq CODE status full code DISPOSITION : Medically stable to be discharged home today Total Time Total Time Spent Total Time Spent (In Minutes): 35 min Discharge Plan Discharge Items Patient Disposition: Home - Self-Care Reason For Visit: STROKE LIKE SYMPTOMS Discharge Diagnosis: TIA /STROKE LIKE SYMPTOM HYPERTENSION Activity: Resume your previous activity Non-emergency contact: Primary Care Provider Call non-emergency contact if: you have any medication questions Follow-up/Referrals: Christian Wallace MD [Primary Care Provider] - 11/03/19 2:20 pm (Date & Time 11/03/2019 2:20 PM Provider Guerline Edwards DO [facility] ) Alber Sykes DO [Physician] - (NEUROLOGY FOLLOW UP IN 8 WEEKS PLEASE CALL OFFICE TO SCHEDULE APPOINTMENT ) Diet: Heart Healthy Addgilberto Attending Provider Instructions: Risk Factors for Stroke: You can reduce your chances of stroke by working with your medical provider to adopt a healthy lifestyle. Some specific ways to lower your chance of stroke are: * If you are a smoker, now is the time to stop smoking cigarettes * If you are diabetic, improve the control of your blood sugars * Avoid excessive amounts of alcohol * Control high blood pressure * Lose weight if you are overweight * Be sure to lead an active lifestyle * Eat a healthy diet low in salt, cholesterol and fat You should know about other risk factors for stroke that you are unable to control. These include: * Age 55 years or older * Male gender * Certain racial groups: , or / * Family History of Stroke, Mini stroke or Heart Attack * Sickle Cell Disease Follow Up: It is important for you to keep your follow up appointments with your medical provider. Who to Call and When: Medical Emergencies: Call 911 immediately if you experience any of the following warning signs and symptoms of Stroke: * Sudden numbness or weakness of the face, arm or leg, especially on one side of the body * Sudden confusion, trouble speaking or understanding * Sudden trouble seeing in one or both eyes * Sudden trouble walking, dizziness, loss of balance or coordination * Sudden severe headache with no cause Do not delay calling 911 if you experience any warning signs or symptoms of a stroke. Delay in seeking medical attention may affect what treatments can be given to you. . Addtl Care Team Coordinator Scheduler Provider Instructions: You are started on 2 medications to prevent stroke: Plavix 75 mg take 1 tablet daily(please take with food)-for 21 days Do not take omeprazole, while taking Plavix, as it will reduce the effectiveness of Plavix You are prescribed Pantoprazole for 3 weeks , then can start back on Omeprazole again Aspirin 81 mg daily(please take with food)-continue to take it for stroke prevention Atorvastatin/Lipitor 40 mg 1 tablet daily-to lower cholesterol Follow-up with your family physician for blood pressure monitoring and medication adjustment as needed Pending Studies at Discharge: No Stand-Alone Forms: Medications to Prevent Stroke, [facility] [email or web address], Smoking Cessation Medications and DC Order Prescriptions: New atorvastatin 40 mg Tablet 40 mg PO QAM 30 Days Qty: 30 RF: 3 aspirin 81 mg Tablet,Delayed Release (Dr/Ec) 81 mg PO QAM 30 Days Qty: 30 RF: 3 clopidogrel 75 mg Tablet 75 mg PO QAM 21 Days Qty: 21 RF: 0 pantoprazole [Protonix] 20 mg tablet,delayed release (DR/EC) 20 mg PO DAILY 21 Days Qty: 21 RF: 0 Continued alprazolam 0.25 mg tablet 0.25 mg PO DAILY PRN (Reason: Anxiety) RF: 0 baclofen 10 mg tablet 10 mg PO DAILY PRN (Reason: Muscle Spasticity) RF: 0 metoprolol tartrate 25 mg tablet 25 mg PO BID RF: 0 Ngwy-Mhjz-Imcn(vit A,C-biotin) 2,500 unit-100 mg-2,500 mcg Capsule 2 cap PO QAM RF: 0 acetaminophen 325 mg tablet 650 mg PO Q6H PRN (Reason: Pain) RF: 0 Ventolin HFA 108 mcg 2 puff PO QID PRN (Reason: Dyspnea) RF: 0 Discontinued omeprazole 20 mg capsule,delayed release(DR/EC) 20 mg PO DAILY@1800 RF: 0 Discharge Orders: Discharge Order (Routine); Ordered 10/28/19 Ordered By: Carmelina Pulido Admission Data Admit Date/Time: 10/27/19 13:24 Attending Provider: Carmelina Pulido Admit Provider: Praneeth Fernandez Primary Care Provider: Christian Wallace Other Providers: Praneeth Fernandez ; Alber Sykes Other Interventions: Discharge Summary Assessment (RN) Last Done: 10/28/19 13:03
== END 2019-10-28 14:51 | disposition home or self-care (01) | DRG 305 ==
LOC: 2S 12:44 → ED 12:44 → SUATTDRO 15:08 → 2S 16:07 → 2N 10-27 14:18